=== PATIENT | male | born 1950 | race Caucasian/White ===

== ENCOUNTER 2016-08-05 07:20 | Outpatient (CLI) | payer BC | END 2016-08-05 07:21 | disposition home or self-care (01) | DX: E78.5 Hyperlipidemia, unspecified (principal); I10 Essential (primary) hypertension; I25.10 Atherosclerotic heart disease of native coronary artery without angina pectoris; Z95.1 Presence of aortocoronary bypass graft ==

== ENCOUNTER 2016-08-05 07:20 | Outpatient (CLI) | payer BC | END 2016-08-05 07:21 | disposition home or self-care (01) | DX: E11.9 Type 2 diabetes mellitus without complications (principal); I25.10 Atherosclerotic heart disease of native coronary artery without angina pectoris; I10 Essential (primary) hypertension ==

== ENCOUNTER 2017-02-15 08:00 | Outpatient (CLI) | payer BC ==
[2017-02-15 13:20] LABS: ALBUMIN/GLOBULIN RATIO 1.5 (1.0-2.2); BILIRUBIN,TOTAL 0.9 mg/dL (0.2-1.0); CALCIUM 9.6 mg/dL (8.5-10.3); CREATININE 0.7 mg/dL (0.6-1.2); POTASSIUM 4.4 mmol/L (3.5-5.0); TOTAL PROTEIN 7.4 g/dL (6.7-8.2)
[2017-02-15 13:26] LABS: HEMOGLOBIN A1C 0.92 g/dL
== END 2017-02-15 08:01 | disposition home or self-care (01) ==
LOC: LAB.WCP 08:00
PROVIDERS: ATTEND Family Medicine
DX: I25.10 Atherosclerotic heart disease of native coronary artery without angina pectoris (principal); E11.9 Type 2 diabetes mellitus without complications
CPT/HCPCS: 36415; 80053; 83036

== ENCOUNTER 2017-08-15 07:08 | Outpatient (CLI) | payer BC ==
[2017-08-15 12:30] LABS: BASOPHILS # (AUTO) 0.1 10^3/uL (0.0-0.1); EOSINOPHILS # (AUTO) 0.1 10^3/uL (0.0-0.7); EOSINOPHILS % (AUTO) 2.2 %; HGB - HEMOGLOBIN 15.4 g/dL (14.0-18.0); LYMPHOCYTES # (AUTO) 2.1 10^3/uL (1.5-3.5); LYMPHOCYTES % (AUTO) 36.7 %; MEAN CORPUSCULAR HEMOGLOBIN 31.3 pg (27.0-31.0); MEAN CORPUSCULAR HGB CONC 33.5 g/dL (32.0-36.0); MEAN CORPUSCULAR VOLUME 93.6 fL (80.0-94.0); MONOCYTES # (AUTO) 0.6 10^3/uL (0.0-1.0); MONOCYTES % (AUTO) 10.6 %; NEUTROPHILS # (AUTO) 2.8 10^3/uL (1.5-6.6); NEUTROPHILS % (AUTO) 49.5 %; PLT - PLATELET COUNT 170 10^3/uL (130-450); RED CELL DISTRIBUTION WIDTH 13.2 % (12.0-15.0); WHITE BLOOD COUNT 5.7 x10^3/uL (4.8-10.8)
[2017-08-15 12:47] LABS: HB2 TOTAL 16.9 g/dL; HEMOGLOBIN A1C 0.92 g/dL; HEMOGLOBIN A1C % 7.1 % (4.6-6.2)
[2017-08-15 12:53] LABS: CHOL/HDL RATIO 4.2 (<5.0); CHOLESTEROL 125 mg/dL; HDL CHOLESTEROL 30 mg/dL; LDL CHOLESTEROL,CALCULATED 61 mg/dL; VLDL CHOLESTEROL 34 mg/dL
== END 2017-08-15 07:09 | disposition home or self-care (01) ==
LOC: LAB.WCP 07:08
PROVIDERS: ATTEND Family Medicine
DX: Z12.5 Encounter for screening for malignant neoplasm of prostate (principal); E78.5 Hyperlipidemia, unspecified
CPT/HCPCS: 36415; 80061; 82043; 83036; 83721; 84153; 84443; 85025

== ENCOUNTER 2017-09-04 06:58 | Outpatient (CLI) | payer BC | END 2017-09-04 06:59 | disposition critical access hospital (66) | LOC: EMS 06:58 | PROVIDERS: ATTEND Surgery | DX: R07.9 Chest pain, unspecified (principal) | CPT/HCPCS: A0425; A0427 ==

== ENCOUNTER 2017-09-04 07:21 | Emergency (ER) | payer BC ==
[2017-09-04 07:43] LABS: BASOPHILS # (AUTO) 0.1 10^3/uL (0.0-0.1); BASOPHILS % (AUTO) 1.3 %; EOSINOPHILS # (AUTO) 0.1 10^3/uL (0.0-0.7); EOSINOPHILS % (AUTO) 2.1 %; HGB - HEMOGLOBIN 14.7 g/dL (14.0-18.0); LYMPHOCYTES # (AUTO) 1.7 10^3/uL (1.5-3.5); LYMPHOCYTES % (AUTO) 30.7 %; MEAN CORPUSCULAR HEMOGLOBIN 31.5 pg (27.0-31.0); MEAN CORPUSCULAR HGB CONC 33.9 g/dL (32.0-36.0); MEAN PLATELET VOLUME 8.6 fL (7.4-11.4); MONOCYTES # (AUTO) 0.5 10^3/uL (0.0-1.0); MONOCYTES % (AUTO) 8.7 %; NEUTROPHILS # (AUTO) 3.2 10^3/uL (1.5-6.6); NEUTROPHILS % (AUTO) 57.2 %; PLT - PLATELET COUNT 154 10^3/uL (130-450); RED BLOOD COUNT 4.67 10^6/uL (4.70-6.10); RED CELL DISTRIBUTION WIDTH 13.1 % (12.0-15.0); WHITE BLOOD COUNT 5.7 x10^3/uL (4.8-10.8)
[2017-09-04 07:57] LABS: ALBUMIN/GLOBULIN RATIO 1.3 (1.0-2.2); BILIRUBIN,TOTAL 0.4 mg/dL (0.2-1.0); CALCIUM 8.8 mg/dL (8.5-10.3); CREATININE 0.6 mg/dL (0.6-1.2)
--- NOTE | 2017-09-04 08:07 | ED Physician Documentation ---
PD HPI CHEST PAIN - Stated complaint Stated Complaint: CP - Chief complaint Chief Complaint: Cardiac - History obtained from History obtained from: Patient, Family, EMS - History of Present Illness Timing - onset: Enter time (629), Today Timing - onset during: Rest Timing - duration: Minutes (30) Timing - details: Abrupt onset, Now resolved Quality: Pressure, Tightness Location: Substernal Radiation: Back Improved by: Nothing Worsened by: No: Inspiration, Movement, Palpation, Position Associated symptoms: Diaphoresis. No: Shortness of air, Nausea, Vomiting, Feeling faint / dizzy, General Weakness, Palpitations, Cough Similar symptoms before: Has not had sx before Recently seen: Clinic - Additional information Additional information: 66-year-old diabetic male with a history of coronary artery disease was at his workstation today in his home sitting at his computer when he developed some diaphoresis. He did get up and going to the shower and after he got out of the shower he developed some substernal pressure in his chest with radiation to his back. He did not develop lightheadedness or dizziness associated with this he did not get nauseous. He did not have radiation into his arm or jaw. He took some nitro without change in the pain.His pain lasted about 30 minutes. He notes that over the past week his blood sugars have been running in the 140-180 range she did have one at 200. He is recently been into see his doctor and has had his metformin changed from 500 3 times daily to 1000 twice daily.He has bypass done in 2000 he has had a cath done in 2013 and echo done last year. Review of Systems Constitutional: denies: Fever Eyes: denies: Decreased vision Ears: denies: Ear pain Nose: denies: Congestion Throat: denies: Sore throat Cardiac: reports: Chest pain / pressure. denies: Palpitations, Pedal edema, Calf pain Respiratory: denies: Dyspnea, Cough, Wheezing GI: denies: Abdominal Pain, Nausea, Vomiting : denies: Dysuria, Frequency Skin: denies: Rash Musculoskeletal: reports: Back pain. denies: Neck pain, Extremity pain PD PAST MEDICAL HISTORY - Allergies Allergies/Adverse Reactions: Allergies Allergy/AdvReac Type Severity Reaction Status Date / Time No Known Drug Allergies Allergy Verified 09/04/17 08:32 PD ED PE NORMAL - Vitals Vital signs reviewed: Yes (Hypotensive with wide pulse pressure) - General General: Alert and oriented X 3, No acute distress, Well developed/nourished - HEENT HEENT: Atraumatic, PERRL, EOMI - Neck Neck: Supple, no meningeal sign, No bony TTP - Cardiac Cardiac: RRR, No murmur, Other (Well-healed sternotomy scar) - Respiratory Respiratory: No respiratory distress, Clear bilaterally - Abdomen Abdomen: Soft, Non tender - Back Back: No CVA TTP, No spinal TTP - Derm Derm: Normal color, Warm and dry, No rash - Extremities Extremities: No deformity, No edema - Neuro Neuro: Alert and oriented X 3, No motor deficit, No sensory deficit, Normal speech Eye Opening: Spontaneous Motor: Obeys Commands Verbal: Oriented GCS Score: 15 - Psych Psych: Normal mood, Normal affect Results - Vitals Vitals: Vital Signs - 24 hr 09/04/17 09/04/17 09/04/17 07:30 08:21 10:38 Temperature 36.8 C 37.0 C Heart Rate 73 64 53 L Respiratory 16 14 18 Rate Blood Pressure 105/51 L 154/77 H 161/82 H O2 Saturation 100 96 93 Oxygen O2 Source Room air - EKG (time done) 0725 Rate: Rate (enter#) (67) Rhythm: NSR, LAE Intervals: Prolonged MA Ischemia: Q waves, Non specific changes Compare to prior EKG: Old EKG unavailable Computer interpretation: Agree with computer - Labs Labs: Laboratory Tests 09/04/17 09/04/17 09/04/17 07:38 07:38 07:38 WBC 5.7 RBC 4.67 L Hgb 14.7 Hct 43.4 MCV 93.0 MCH 31.5 H MCHC 33.9 RDW 13.1 Plt Count 154 MPV 8.6 Neut # 3.2 Lymph # 1.7 [place] # 0.5 Eos # 0.1 Baso # 0.1 Absolute Nucleated RBC 0.00 Nucleated RBC % 0.0 Sodium 136 Potassium 4.0 Chloride 104 Carbon Dioxide 24 Anion Gap 8.0 BUN 16 Creatinine 0.6 Estimated GFR (MDRD) 136 Glucose 199 H Calcium 8.8 Total Bilirubin 0.4 AST 29 ALT 54 Alkaline Phosphatase 81 Troponin I < 0.04 Total Protein 7.0 Albumin 4.0 Globulin 3.0 Albumin/Globulin Ratio 1.3 Lipase 33 09/04/17 11:03 WBC RBC Hgb Hct MCV MCH MCHC RDW Plt Count MPV Neut # Lymph # [place] # Eos # Baso # Absolute Nucleated RBC Nucleated RBC % Sodium Potassium Chloride Carbon Dioxide Anion Gap BUN Creatinine Estimated GFR (MDRD) Glucose Calcium Total Bilirubin AST ALT Alkaline Phosphatase Troponin I < 0.04 Total Protein Albumin Globulin Albumin/Globulin Ratio Lipase - Rads (name of study) 2 veiw chest Radiology: Prelim report reviewed (Impression: No radiographically apparent acute abnormality in the chest. No significant change from prior.), EMP read indepedently, See rad report Procedures - IVC sono (time) 0755 Bedside IVC sono: IVC measures (cm) (0.92), IVC collapsed c insp (cm) (complete) , Dehydration (est 1.5 -2 liter deficit) PD MEDICAL DECISION MAKING - ED course Complexity details: reviewed old records, reviewed results, re-evaluated patient , considered differential, d/w patient, d/w family ED course: 66-year-old diabetic male with coronary artery disease has had an episode of chest pain now resolved and on initial evaluation he is dehydrated he does have a low blood pressure at 105/51 with a wide pulse pressure consistent with the dehydration. His episode occurred when he got out of the shower also consistent with redistribution of fluid into the skin potentially resulting in his episode of angina.Saline is begun in the emergency department. The patient has no symptoms in the ED and passes a road test and a 2nd trop is also negative. Departure - Departure Disposition: 01 Home, Self Care Clinical Impression: Atypical chest pain, Dehydration Condition: Stable Instructions: ED Chest Pain Atypical Unkn Cause, ED Dehydration Follow-Up: Eder Mei MD [Primary Care Provider] -
--- NOTE | 2017-09-04 08:09 | XRAY Report ---
EXAM: CHEST RADIOGRAPHY EXAM DATE: 09/04/2017 07:52 AM. CLINICAL HISTORY: Chest pain . COMPARISON: 11/23/2009. TECHNIQUE: 2 views. FINDINGS: Lungs/Pleura: No focal consolidation evident. No pleural effusion. No pneumothorax. Upper normal volu mes. Mediastinum: Heart and mediastinal contours are unremarkable. Aortic atherosclerosis. Other: Status post median sternotomy. IMPRESSION: No radiographically apparent acute abnormality in the chest. No significant change from p rior. [facility] Referring Provider Line: [phone] SITE ID: [id number]
[2017-09-04] MEDS ORDERED: SODIUM CHLORIDE 0.9% 1,000 ML IV ONE (08:16)
[2017-09-04 10:40] VITALS: BP 161/82
== END 2017-09-04 12:20 | disposition home or self-care (01) ==
LOC: EDUNIT# → ED 07:21
DX: R07.89 Other chest pain (principal); E86.0 Dehydration; E11.9 Type 2 diabetes mellitus without complications; I25.10 Atherosclerotic heart disease of native coronary artery without angina pectoris
CPT/HCPCS: 36415; 71046; 80053; 83690; 84484; 85025; 93005; 96360; 99283; 99284

== ENCOUNTER 2018-03-16 12:17 | Outpatient (CLI) | payer BC ==
[2018-03-16 12:59] LABS: ALBUMIN/GLOBULIN RATIO 1.4 (1.0-2.2); BILIRUBIN,TOTAL 0.7 mg/dL (0.2-1.0); CALCIUM 8.8 mg/dL (8.5-10.3); CREATININE 0.8 mg/dL (0.6-1.2); TOTAL PROTEIN 6.9 g/dL (6.7-8.2)
[2018-03-16 13:09] LABS: HB2 TOTAL 15.6 g/dL; HEMOGLOBIN A1C 0.81 g/dL; HEMOGLOBIN A1C % 6.9 % (4.6-6.2)
== END 2018-03-16 12:18 | disposition home or self-care (01) ==
LOC: LAB.WCP 12:17
PROVIDERS: ATTEND Family Medicine
DX: E11.9 Type 2 diabetes mellitus without complications (principal)
CPT/HCPCS: 36415; 80053; 83036

== ENCOUNTER 2018-03-21 19:46 | Emergency (ER) | payer BC ==
--- NOTE | 2018-03-21 20:49 | ED Physician Documentation ---
PD HPI CHEST PAIN - Stated complaint Stated Complaint: CP - Chief complaint Chief Complaint: Cardiac - History obtained from History obtained from: Patient - History of Present Illness Timing - onset: Enter time (19:00), Today Timing - onset during: Rest (while sitting at table, shortly after finishing dinner) Timing - details: Abrupt onset Pain level max: 3 Pain level now: 0 Quality: Tightness Location: Substernal (across anterior chest) Radiation: No: Jaw, Neck, Back, Abdominal, Left upper extremity, Right upper extremity Improved by: Nothing Worsened by: Other (no exacerbating factors) Associated symptoms: No: Shortness of air, Diaphoresis, Nausea, Vomiting, Feeling faint / dizzy, General Weakness, Palpitations, Cough Recently seen: Not recently seen - Additional information Additional information: c/o tightness across chest tonight 7 PM shortly after finishing dinner. Also felt anxious and thus took lorazepam. Symptoms have resolved by the time of this evaluation.He also took 325mg ASA tonight. Review of Systems Constitutional: reports: Sweats Cardiac: reports: Chest pain / pressure. denies: Palpitations, Pedal edema, Calf pain Respiratory: reports: Reviewed and negative GI: reports: Reviewed and negative PD PAST MEDICAL HISTORY - Past Medical History Past Medical History: Yes Cardiovascular: Hypertension, High cholesterol, Coronary artery disease, [place] Respiratory: None Neuro: None Endocrine/Autoimmune: Type 2 diabetes GI: None, Hepatitis HEENT: None Psych: Anxiety Derm: None - Past Surgical History Past Surgical History: Yes Cardiovascular: CABG - Present Medications Home Medications: Ambulatory Orders Medication Instructions Recorded Confirmed Atenolol 03/21/18 Atorvastatin [Lipitor] 03/21/18 Azithromycin [Zithromax] 250 mg PO DAILY #4 tablet 03/21/18 Glipizide [Glipizide ER] 03/21/18 Metformin HCl [Metformin HCl ER] 03/21/18 Ramipril 03/21/18 metFORMIN [Glucophage] 03/21/18 - Allergies Allergies/Adverse Reactions: Allergies Allergy/AdvReac Type Severity Reaction Status Date / Time No Known Drug Allergies Allergy Verified 03/21/18 20:18 - Social History Does the pt smoke?: No Smoking Status: Never smoker Does the pt drink ETOH?: Yes ETOH Use: Beer Does the pt have substance abuse?: No - Immunizations Immunizations are current?: Yes - POLST Patient has POLST: Yes PD ED PE NORMAL - Vitals Vital signs reviewed: Yes - General General: Alert and oriented X 3, No acute distress, Well developed/nourished - Neck Neck: Supple, no meningeal sign - Cardiac Cardiac: RRR, No murmur, No gallop, No rub - Respiratory Respiratory: No respiratory distress, Clear bilaterally - Abdomen Abdomen: Soft, Non tender - Extremities Extremities: No edema - Neuro Neuro: Alert and oriented X 3 Results - Vitals Vitals: Oxygen O2 Source Room air - EKG (time done) No standard instances Rate: Rate (enter#) (92) Rhythm: NSR, LAE [place]: Normal Intervals: Normal MD QRS: Normal Ischemia: Q waves (V1-V4), Non specific changes (V5, V6) - Labs Labs: Laboratory Tests 03/21/18 03/21/18 03/21/18 20:10 20:10 20:10 WBC 6.0 RBC 4.86 Hgb 15.6 Hct 45.2 MCV 93.0 MCH 32.0 H MCHC 34.5 RDW 13.4 Plt Count 177 MPV 8.8 Neut # (Auto) 3.4 Lymph # (Auto) 2.1 [place] # (Auto) 0.4 Eos # (Auto) 0.1 Baso # (Auto) 0.1 Absolute Nucleated RBC 0.01 Nucleated RBC % 0.1 Sodium 140 Potassium 4.1 Chloride 104 Carbon Dioxide 27 Anion Gap 9.0 BUN 26 H Creatinine 0.7 Estimated GFR (MDRD) 113 Glucose 220 H Calcium 9.2 Total Bilirubin 0.5 AST 39 ALT 60 Alkaline Phosphatase 107 Troponin I < 0.04 Total Protein 7.1 Albumin 4.3 Globulin 2.8 Albumin/Globulin Ratio 1.5 Lipase 45 - Rads (name of study) chest xray Radiology: Prelim report reviewed, See rad report PD MEDICAL DECISION MAKING - ED course Complexity details: reviewed results, re-evaluated patient, considered differential, d/w patient - Sepsis Event Vital Signs: Oxygen O2 Source Room air Departure - Departure Disposition: 01 Home, Self Care Clinical Impression: Chest pain Condition: Good Instructions: ED Chest Pain Atypical Unkn Cause Follow-Up: Eder Mei MD [Primary Care Provider] - Prescriptions: Azithromycin [Zithromax] 250 mg PO DAILY #4 tablet Discharge Date/Time: 03/21/18 22:54
[2018-03-21 20:53] LABS: BASOPHILS # (AUTO) 0.1 10^3/uL (0.0-0.1); BASOPHILS % (AUTO) 1.1 %; EOSINOPHILS # (AUTO) 0.1 10^3/uL (0.0-0.7); EOSINOPHILS % (AUTO) 1.7 %; HGB - HEMOGLOBIN 15.6 g/dL (14.0-18.0); LYMPHOCYTES # (AUTO) 2.1 10^3/uL (1.5-3.5); LYMPHOCYTES % (AUTO) 34.6 %; MEAN CORPUSCULAR HGB CONC 34.5 g/dL (32.0-36.0); MEAN PLATELET VOLUME 8.8 fL (7.4-11.4); MONOCYTES # (AUTO) 0.4 10^3/uL (0.0-1.0); MONOCYTES % (AUTO) 6.3 %; NEUTROPHILS # (AUTO) 3.4 10^3/uL (1.5-6.6); NEUTROPHILS % (AUTO) 56.3 %; PLT - PLATELET COUNT 177 10^3/uL (130-450); RED BLOOD COUNT 4.86 10^6/uL (4.70-6.10); RED CELL DISTRIBUTION WIDTH 13.4 % (12.0-15.0)
[2018-03-21 21:05] LABS: ALBUMIN 4.3 g/dL (3.2-5.5); ALBUMIN/GLOBULIN RATIO 1.5 (1.0-2.2); BILIRUBIN,TOTAL 0.5 mg/dL (0.2-1.0); CALCIUM 9.2 mg/dL (8.5-10.3); CREATININE 0.7 mg/dL (0.6-1.2); TOTAL PROTEIN 7.1 g/dL (6.7-8.2)
--- NOTE | 2018-03-21 21:36 | XRAY Report ---
Reason: CP Procedure Date: 03/21/2018 Accession Number: [id number] / [id number] Procedure: XR - Chest 2 View X-Ray CPT Code: 26630 FULL RESULT: EXAM: CHEST RADIOGRAPHY EXAM DATE: 03/21/2018 09:28 PM. CLINICAL HISTORY: Chest pain. COMPARISON: Chest 2 view 09/04/2017 7:35 AM. TECHNIQUE: 2 views. FINDINGS: Lungs/Pleura: New small interstitial infiltrate posterior basal segment left lower lobe. No effusion, vascular congestion or pneumothorax. Mediastinum: Remote sternotomy. Heart remains normal caliber. No tracheal shift. Other: None. IMPRESSION: Small left posterior lung base infiltrate. [facility]
[2018-03-21 22:33] VITALS: BP 135/73
[2018-03-21] MEDS ORDERED: AZITHROMYCIN 250 MG TABLET PO STA (22:37)
== END 2018-03-21 22:54 | disposition home or self-care (01) ==
LOC: ED 19:46
DX: R07.9 Chest pain, unspecified (principal); I10 Essential (primary) hypertension; E11.9 Type 2 diabetes mellitus without complications; Z79.84 Long term (current) use of oral hypoglycemic drugs; R94.31 Abnormal electrocardiogram [ECG] [EKG]; Z95.1 Presence of aortocoronary bypass graft
CPT/HCPCS: 36415; 71046; 80053; 83690; 84484; 85025; 93005; 99283; 99284; A9270

== ENCOUNTER 2018-09-17 08:00 | Outpatient (CLI) | payer BC ==
[2018-09-17 13:59] LABS: BASOPHILS % (AUTO) 0.9 %; EOSINOPHILS # (AUTO) 0.1 10^3/uL (0.0-0.7); EOSINOPHILS % (AUTO) 2.3 %; HGB - HEMOGLOBIN 14.6 g/dL (14.0-18.0); LYMPHOCYTES # (AUTO) 1.8 10^3/uL (1.5-3.5); LYMPHOCYTES % (AUTO) 34.9 %; MEAN CORPUSCULAR HGB CONC 32.8 g/dL (32.0-36.0); MEAN CORPUSCULAR VOLUME 94.5 fL (80.0-94.0); MEAN PLATELET VOLUME 9.1 fL (7.4-11.4); MONOCYTES # (AUTO) 0.5 10^3/uL (0.0-1.0); MONOCYTES % (AUTO) 9.7 %; NEUTROPHILS # (AUTO) 2.7 10^3/uL (1.5-6.6); NEUTROPHILS % (AUTO) 52.2 %; PLT - PLATELET COUNT 183 10^3/uL (130-450); RED BLOOD COUNT 4.73 10^6/uL (4.70-6.10); RED CELL DISTRIBUTION WIDTH 13.1 % (12.0-15.0); WHITE BLOOD COUNT 5.2 x10^3/uL (4.8-10.8)
[2018-09-17 14:25] LABS: ALBUMIN/GLOBULIN RATIO 1.5 (1.0-2.2); ALKALINE PHOSPHATASE 71 IU/L (42-121); ALT ALANINE AMINOTRANSFERASE 56 IU/L (10-60); AST ASPARTATE AMINOTRANSFERASE 35 IU/L (10-42); BILIRUBIN,TOTAL 0.9 mg/dL (0.2-1.0); BUN - BLOOD UREA NITROGEN 18 mg/dL (6-20); CALCIUM 8.9 mg/dL (8.5-10.3); CARBON DIOXIDE - CO2 26 mmol/L (21-32); CHLORIDE 102 mmol/L (101-111); CHOL/HDL RATIO 3.4 (<5.0); CHOLESTEROL 105 mg/dL; CREATININE 0.7 mg/dL (0.6-1.2); GFR - MDRD 113 (>89); GLUCOSE 164 mg/dL (70-100); HDL CHOLESTEROL 31 mg/dL; LDL CHOLESTEROL,CALCULATED 44 mg/dL; LDL/HDL RATIO 1.4 (<3.6); SODIUM 136 mmol/L (135-145); TOTAL PROTEIN 6.7 g/dL (6.7-8.2); VLDL CHOLESTEROL 30 mg/dL
[2018-09-17 14:38] LABS: CREATININE,URINE 17.6 mg/dL; MICROALBUM/CREATININE RATIO,UR 187.5 ug/mg (<30.0); MICROALBUMIN,URINE 3.3 mg/dL (0-300.0)
[2018-09-17 14:40] LABS: HB2 TOTAL 16.4 g/dL; HEMOGLOBIN A1C 0.87 g/dL
== END 2018-09-17 23:59 | disposition home or self-care (01) ==
LOC: LAB.WCP 08:00
PROVIDERS: ATTEND Family Medicine
DX: I25.10 Atherosclerotic heart disease of native coronary artery without angina pectoris (principal); I10 Essential (primary) hypertension; E78.5 Hyperlipidemia, unspecified; E11.9 Type 2 diabetes mellitus without complications; E66.9 Obesity, unspecified
CPT/HCPCS: 36415; 80053; 80061; 82043; 82570; 83036; 83721; 84443; 85025

== ENCOUNTER 2018-10-08 13:22 | Outpatient (CLI) | payer BC ==
--- NOTE | 2018-10-08 15:58 | XRAY Report ---
Reason: DYSPEPSIA Procedure Date: 10/08/2018 Accession Number: [id number] / [id number] Procedure: FL - Esophogram CPT Code: FULL RESULT: EXAM: BARIUM ESOPHAGRAM. EXAM DATE: 10/08/2018 02:35 PM. CLINICAL HISTORY: Dyspepsia. COMPARISONS: None. TECHNIQUE: Routine double contrast esophagram. Fluoroscopy Time: 2 minutes 24 seconds. Number of Images: 12. FINDINGS: Swallowing Mechanism: Normal. No tracheal aspiration or penetration. Esophageal Motility: Normal peristaltic stripping wave. Mucosa: Normal. No ulcerations or masses. Gastroesophageal Junction: Normal. No hernia, stricture, or significant reflux. Other: None. IMPRESSION: No hiatal hernia was detected. No spontaneous reflux was elicited. [facility]
[2018-10-08] MEDS ORDERED: BARIUM SULFATE 135 ML BOTTLE PO ONE (16:28)
== END 2018-10-08 13:23 | disposition home or self-care (01) ==
LOC: DI 13:22
PROVIDERS: ATTEND Family Medicine
DX: K30 Functional dyspepsia (principal)
CPT/HCPCS: 74220; A9270

== ENCOUNTER 2019-05-02 08:00 | Outpatient (CLI) | payer BC ==
[2019-05-02 12:40] LABS: CALCIUM 9.2 mg/dL (8.5-10.3); CREATININE 0.7 mg/dL (0.6-1.2)
[2019-05-02 12:55] LABS: HEMOGLOBIN A1C 0.82 g/dL; HEMOGLOBIN A1C % 6.8 % (4.6-6.2)
== END 2019-05-02 23:59 | disposition home or self-care (01) ==
LOC: LAB.WCP 08:00
PROVIDERS: ATTEND Family Medicine
DX: E11.9 Type 2 diabetes mellitus without complications (principal); Z12.5 Encounter for screening for malignant neoplasm of prostate
CPT/HCPCS: 36415; 80048; 83036; 84153

== ENCOUNTER 2020-03-19 07:56 | Outpatient (CLI) | payer BC, OTHER ==
[2020-03-19 11:31] LABS: BASOPHILS # (AUTO) 0.1 10^3/uL (0.0-0.1); BASOPHILS % (AUTO) 0.9 %; EOSINOPHILS # (AUTO) 0.1 10^3/uL (0.0-0.7); EOSINOPHILS % (AUTO) 2.2 %; HGB - HEMOGLOBIN 15.2 g/dL (14.0-18.0); LYMPHOCYTES # (AUTO) 1.9 10^3/uL (1.5-3.5); LYMPHOCYTES % (AUTO) 35.1 %; MEAN CORPUSCULAR HEMOGLOBIN 32.4 pg (27.0-31.0); MEAN CORPUSCULAR HGB CONC 33.4 g/dL (32.0-36.0); MEAN PLATELET VOLUME 10.6 fL (7.4-11.4); MONOCYTES # (AUTO) 0.5 10^3/uL (0.0-1.0); NEUTROPHILS # (AUTO) 2.8 10^3/uL (1.5-6.6); NEUTROPHILS % (AUTO) 51.4 %; PLT - PLATELET COUNT 167 10^3/uL (130-450); RED BLOOD COUNT 4.69 10^6/uL (4.70-6.10); RED CELL DISTRIBUTION WIDTH 12.7 % (12.0-15.0); WHITE BLOOD COUNT 5.4 x10^3/uL (4.8-10.8)
[2020-03-19 12:06] LABS: ALBUMIN 4.3 g/dL (3.2-5.5); ALBUMIN/GLOBULIN RATIO 1.7 (1.0-2.2); ALKALINE PHOSPHATASE 58 IU/L (42-121); ALT ALANINE AMINOTRANSFERASE 51 IU/L (10-60); AST ASPARTATE AMINOTRANSFERASE 34 IU/L (10-42); BILIRUBIN,TOTAL 0.9 mg/dL (0.2-1.0); BUN - BLOOD UREA NITROGEN 19 mg/dL (6-20); CALCIUM 9.4 mg/dL (8.5-10.3); CARBON DIOXIDE - CO2 26 mmol/L (21-32); CHLORIDE 103 mmol/L (101-111); CHOL/HDL RATIO 3.3 (<5.0); CHOLESTEROL 107 mg/dL; CREATININE 0.8 mg/dL (0.6-1.2); GLUCOSE 152 mg/dL (70-100); HDL CHOLESTEROL 32 mg/dL; LDL CHOLESTEROL,CALCULATED 46 mg/dL; LDL/HDL RATIO 1.4 (<3.6); SODIUM 137 mmol/L (135-145); TOTAL PROTEIN 6.9 g/dL (6.7-8.2); VLDL CHOLESTEROL 29 mg/dL
== END 2020-03-19 23:59 | disposition home or self-care (01) ==
LOC: LAB.WCP 07:56
PROVIDERS: ATTEND Family Medicine
DX: Z00.00 Encounter for general adult medical examination without abnormal findings (principal)
CPT/HCPCS: 36415; 80053; 80061; 83721; 84443; 85025

== ENCOUNTER 2020-04-09 07:22 | Outpatient (CLI) | payer BC ==
[2020-04-09] MEDS ORDERED: IOVERSOL 320 100 ML VIAL IVP ONE ×2 (07:33→17:55)
[2020-04-09] MEDS ORDERED: IOVERSOL 320 50 ML VIAL ONE (07:33)
--- NOTE | 2020-04-09 09:49 | CT Report ---
PROCEDURE: Abdomen/Pelvis W INDICATIONS: RLQ ABDOMINAL PAIN CONTRAST: IV CONTRAST: Optiray 320 ml: 100 PO CONTRAST: Optiray 320 ml50 TECHNIQUE: After the administration of intravenous contrast, 5 mm thick sections acquired from the diaphragms to the symphysis. 5 mm thick coronal and sagittal reformats were acquired. For radiation dose reducti on, the following was used: automated exposure control, adjustment of mA and/or kV according to arnaldo ent size. COMPARISON: None. FINDINGS: Image quality: Excellent. ABDOMEN: Lung bases: There is a 5 mm subpleural right lower lobe pulmonary nodule (series 4 image 8). There is also a 4 mm left lower lobe pulmonary nodule on series 4 image 8. Coronary atherosclerosis. No pleur al effusion or pericardial effusion within the suldo-vc-fryi. Liver: Enpj-be-ihwylrvi hepatic steatosis. No focal hepatic mass. Hepatic and portal veins appear pat ent. Gallbladder and bile ducts: No intrahepatic biliary ductal dilatation. Normal caliber common duct. Ga llbladder is unremarkable. Pancreas: Pancreas is within normal limits. Spleen: No splenomegaly. Retroperitoneum: No adrenal gland mass. There is an exophytic simple cyst in the left lower pole kidn ey measuring 4.6 cm. Otherwise normal appearance of both kidneys. IVC is within normal limits. Athero sclerotic abdominal aorta without aneurysm. No threshold enlarged retroperitoneal lymph nodes by CT s ize criteria. Peritoneum and bowel: The appendix is not visualized. There are no secondary signs of appendicitis. T he bowel is otherwise normal in appearance. PELVIS: Genitourinary: Bladder wall thickness is normal. Miscellaneous: No inguinal hernias or adenopathy. Bones: No suspicious bony lesions. No vertebral body compression fractures. IMPRESSION: No findings to explain right lower quadrant abdominal pain. Mild hepatic steatosis. Bilateral lower lobe pulmonary nodules. Completion CT of the chest recommended. Reviewed by: Johny Menjivar MD on 04/09/2020 9:47 AM PDT Approved by: Johny Menjivar MD on 04/09/2020 9:47 AM PDT Station ID: [id number]
== END 2020-04-09 07:23 | disposition home or self-care (01) ==
LOC: DI 07:22
PROVIDERS: ATTEND Family Medicine
DX: R10.31 Right lower quadrant pain (principal); K76.0 Fatty (change of) liver, not elsewhere classified; R91.8 Other nonspecific abnormal finding of lung field
CPT/HCPCS: 74177; Q9967

== ENCOUNTER 2020-05-13 09:10 | Outpatient (CLI) | payer BC ==
--- NOTE | 2020-05-13 17:57 | CT Report ---
PROCEDURE: CHEST WO INDICATIONS: PULMONARY NODULE TECHNIQUE: Noncontrast 5 mm thick sections acquired from the pulmonary apices to the posterior costophrenic angl es. 7 mm thick coronal and sagittal MIP reformats were then acquired. For radiation dose reduction, the following was used: automated exposure control, adjustment of mA and/or kV according to patient size. COMPARISON: FINDINGS: Image quality: Excellent. Lungs and pleura: No acute air space opacities. At the posterolateral right lower lobe there is a p eripheral 5 mm maximal dimension pulmonary nodule which has not enlarged. This was initially identifi ed 04/09/2020 on images from the abdominal CT. A smaller 4 mm nodule is seen at the anterior left lowe r lobe on series 4 image 184, and also has not changed from the prior CT. More superiorly no pulmonar y nodules are seen. No pleural effusions or pneumothorax. Central and peripheral airways are patent and normal in caliber. Mediastinum: Heart size is normal. No pericardial effusion. No mediastinal adenopathy by size crit eria. Thoracic aorta and central pulmonary arteries are normal in size. Esophagus is normal in [place]. No hiatal hernia. Prior sternotomy, presumed prior CABG. Bones and chest wall: No suspicious bony lesions. No vertebral body compression fractures. No axil tone or supraclavicular adenopathy by size criteria. The thyroid is normal in size. Abdomen: Visualized upper abdominal solid organs and bowel loops appear normal in the absence of con trast. IMPRESSION: There is a low likelihood of neoplastic etiology of the 2 pulmonary nodules identified originally 04/09/[address] scanning. A follow-up CT scan in 6 months is recommended utilizing noncontrast technique to confirm stability of appearance over time. Reviewed by: Rian Small MD on 05/13/2020 5:56 PM PST Approved by: Rian Small MD on 05/13/2020 5:56 PM PST Station ID: [id number]
== END 2020-05-13 09:11 | disposition home or self-care (01) ==
LOC: DI 09:10
PROVIDERS: ATTEND Family Medicine
DX: R91.8 Other nonspecific abnormal finding of lung field (principal)
CPT/HCPCS: 71250

== ENCOUNTER 2020-09-12 08:04 | Outpatient (CLI) | payer BC ==
[2020-09-12 09:16] LABS: BASOPHILS # (AUTO) 0.1 10^3/uL (0.0-0.1); EOSINOPHILS # (AUTO) 0.1 10^3/uL (0.0-0.7); EOSINOPHILS % (AUTO) 2.6 %; HCT - HEMATOCRIT 51.9 % (42.0-52.0); HGB - HEMOGLOBIN 16.3 g/dL (14.0-18.0); LYMPHOCYTES # (AUTO) 1.5 10^3/uL (1.5-3.5); LYMPHOCYTES % (AUTO) 29.1 %; MEAN CORPUSCULAR HEMOGLOBIN 31.3 pg (27.0-31.0); MEAN CORPUSCULAR HGB CONC 31.4 g/dL (32.0-36.0); MEAN CORPUSCULAR VOLUME 99.8 fL (80.0-94.0); MEAN PLATELET VOLUME 9.7 fL (7.4-11.4); MONOCYTES # (AUTO) 0.5 10^3/uL (0.0-1.0); MONOCYTES % (AUTO) 9.6 %; NEUTROPHILS # (AUTO) 2.9 10^3/uL (1.5-6.6); NEUTROPHILS % (AUTO) 57.3 %; PLT - PLATELET COUNT 167 10^3/uL (130-450); RED CELL DISTRIBUTION WIDTH 12.8 % (12.0-15.0)
[2020-09-12 09:22] LABS: CREATININE,URINE 38.9 mg/dL; MICROALBUM/CREATININE RATIO,UR 38.6 ug/mg (<30.0); MICROALBUMIN,URINE 1.5 mg/dL (0-300.0)
[2020-09-12 09:37] LABS: ALBUMIN 4.3 g/dL (3.2-5.5); ALBUMIN/GLOBULIN RATIO 1.4 (1.0-2.2); ALKALINE PHOSPHATASE 72 IU/L (42-121); ALT ALANINE AMINOTRANSFERASE 38 IU/L (10-60); AST ASPARTATE AMINOTRANSFERASE 28 IU/L (10-42); BILIRUBIN,TOTAL 0.9 mg/dL (0.2-1.0); BUN - BLOOD UREA NITROGEN 22 mg/dL (6-20); CALCIUM 9.5 mg/dL (8.5-10.3); CARBON DIOXIDE - CO2 29 mmol/L (21-32); CHLORIDE 103 mmol/L (101-111); CHOL/HDL RATIO 3.4 (<5.0); CHOLESTEROL 120 mg/dL; CREATININE 0.7 mg/dL (0.6-1.2); GFR - MDRD 112 (>89); GLUCOSE 137 mg/dL (70-100); HDL CHOLESTEROL 35 mg/dL; LDL CHOLESTEROL,CALCULATED 62 mg/dL; LDL/HDL RATIO 1.8 (<3.6); POTASSIUM 4.5 mmol/L (3.5-5.0); SODIUM 141 mmol/L (135-145); TOTAL PROTEIN 7.3 g/dL (6.7-8.2); TRIGLYCERIDES 114 mg/dL; VLDL CHOLESTEROL 23 mg/dL
[2020-09-12 09:48] LABS: THYROID STIMULATING HORMONE 0.85 uIU/mL (0.34-5.60)
[2020-09-12 14:26] LABS: ESTIMATED AVERAGE GLUCOSE 148 mg/dL (70-100); HEMOGLOBIN A1c% 6.8 % (4.27-6.07)
== END 2020-09-12 08:05 | disposition home or self-care (01) ==
LOC: LAB 08:04
PROVIDERS: ATTEND Family Medicine
DX: I25.10 Atherosclerotic heart disease of native coronary artery without angina pectoris (principal); E11.9 Type 2 diabetes mellitus without complications; E78.5 Hyperlipidemia, unspecified; I10 Essential (primary) hypertension
CPT/HCPCS: 36415; 80053; 80061; 82043; 82570; 83036; 83721; 84153; 84443; 85025

== ENCOUNTER 2020-12-28 10:12 | Outpatient (CLI) | payer OTHER, BC ==
--- NOTE | 2020-12-28 12:20 | XRAY Report ---
PROCEDURE: Humerus LT INDICATIONS: L SHOULDER AND ARM PX TECHNIQUE: 2 views of the humerus were acquired. COMPARISON: None FINDINGS: Bones: No fractures or dislocations. No suspicious bony lesions. Prominent olecranon bone spur. Soft tissues: No suspicious soft tissue calcifications. IMPRESSION: No fracture. No acute osseous lesion. If there persistent symptoms or continued clinical concern for pathology, then repeat plain film radiographs (7-10 days) or advanced imaging (CT, MR, bone scan) tasha uld be considered for further evaluation. Reviewed by: Crys Rodriguez MD, PhD on 12/28/2020 12:19 PM PDT Approved by: Crys Rodriguez MD, PhD on 12/28/2020 12:19 PM PDT Station ID: [id number]
--- NOTE | 2020-12-28 12:21 | XRAY Report ---
Mild bilateral hip osteoarthritis. PROCEDURE: Hip w/Pelvis 1V LT INDICATIONS: L HIP PX TECHNIQUE: AP pelvis with lateral view(s) of the left hip(s). COMPARISON: None. FINDINGS: Bones: No fractures or dislocations. Pelvic ring appears intact. No suspicious bony lesions. Soft tissues: The visualized bowel gas pattern is normal. No suspicious soft tissue calcifications. IMPRESSION: Mild bilateral hip osteoarthritis. Reviewed by: Crys Rodriguez MD, PhD on 12/28/2020 12:20 PM PDT Approved by: Crys Rodriguez MD, PhD on 12/28/2020 12:20 PM PDT Station ID: [id number]
== END 2020-12-28 10:13 | disposition home or self-care (01) ==
LOC: DI.N 10:12
PROVIDERS: ATTEND Nurse Practitioner
DX: M25.512 Pain in left shoulder (principal); M25.552 Pain in left hip; W19.XXXA Unspecified fall, initial encounter; M16.0 Bilateral primary osteoarthritis of hip

== ENCOUNTER 2021-01-08 19:30 | Emergency (ER) | payer OTHER, BC ==
[2021-01-08] MEDS ORDERED: oxyCODONE 5 MG TABLET PO STA (20:27)
--- NOTE | 2021-01-08 20:28 | ED Physician Documentation ---
PD HPI LOWER EXT INJURY - Stated complaint Stated Complaint: GLF/LT HIP PX - Chief complaint Chief Complaint: Trauma Ext - History obtained from History obtained from: Patient - Additional information Additional information: Fell on December 22, injuring his hip. X-rays were negative. Subsequently had complete improvement. Today he fell at work kind of down onto his back and hip and complete complains of severe left hip pain especially with ambulation. No other injuries. Review of Systems Constitutional: reports: Reviewed and negative Eyes: reports: Reviewed and negative Ears: reports: Reviewed and negative Nose: reports: Rhinorrhea / runny nose Throat: reports: Reviewed and negative PD PAST MEDICAL HISTORY - Past Medical History Past Medical History: Yes Cardiovascular: Hypertension, High cholesterol, Coronary artery disease, [place] Respiratory: None Neuro: None Endocrine/Autoimmune: Type 2 diabetes GI: None, Hepatitis HEENT: None Psych: Anxiety Derm: None - Past Surgical History Past Surgical History: Yes Cardiovascular: CABG - Present Medications Home Medications: Ambulatory Orders Medication Instructions Recorded Confirmed Atorvastatin [Lipitor] 40 mg PO DAILY 03/21/18 01/08/21 Glipizide [Glipizide ER] 5 mg PO DAILY 03/21/18 01/08/21 Metformin HCl [Metformin HCl ER] 500 mg PO BID 03/21/18 01/08/21 Ramipril 10 mg PO DAILY 03/21/18 01/08/21 atenoloL [Atenolol] 50 mg PO DAILY 03/21/18 01/08/21 Aspirin [Centre Aspirin] 81 mg PO DAILY 01/08/21 01/08/21 Cyanocobalamin (Vitamin B-12) 1,000 mg PO TID 01/08/21 01/08/21 [Vitamin B-12] LORazepam [Ativan] 1 mg PO Q4HR PRN 01/08/21 01/08/21 Magnesium Oxide [Magnesium] 400 mg PO BID 01/08/21 01/08/21 Multivitamin 1 tab PO DAILY 01/08/21 01/08/21 Nitroglycerin [Nitrostat] 0.4 mg PO PRN 01/08/21 Oxycodone HCl/Acetaminophen 1 - 2 each PO Q6H PRN #10 tablet 01/08/21 [Percocet 5-325 mg Tablet] Ubidecarenone [Coenzyme Q-10] 200 mg PO DAILY 01/08/21 01/08/21 - Allergies Allergies/Adverse Reactions: Allergies Allergy/AdvReac Type Severity Reaction Status Date / Time No Known Drug Allergies Allergy Verified 03/21/18 20:18 - Social History Does the pt smoke?: No Smoking Status: Never smoker Does the pt drink ETOH?: Yes Does the pt have substance abuse?: No - Immunizations Immunizations are current?: Yes - POLST Patient has POLST: Yes PD ED PE NORMAL - Vitals Vital signs reviewed: Yes - General General: Alert and oriented X 3, No acute distress - HEENT HEENT: PERRL, EOMI - Neck Neck: Supple, no meningeal sign, No bony TTP - Cardiac Cardiac: RRR, No murmur - Respiratory Respiratory: No respiratory distress, Clear bilaterally - Abdomen Abdomen: Non tender - Back Back: No spinal TTP - Extremities Extremities: Other (He does have pain with internal and external rotation of the left hip but it is in the buttock more than the groin or laterally. Mildly tender over the lateral hip but much more tender over the buttock. This is on the left.) - Neuro Neuro: Alert and oriented X 3, Normal speech Results - Vitals Vitals: Vital Signs - 24 hr 01/08/21 01/08/21 19:41 20:31 Temperature 36.5 C Heart Rate 92 84 Respiratory 18 18 Rate Blood Pressure 118/73 O2 Saturation 95 95 Oxygen O2 Source Room air PD MEDICAL DECISION MAKING - ED course ED course: 70-year-old gentleman with fall, worried about the hip but the location is really more consistent with back and gluteal pain. Hip x-ray was negative he passed a road test but out of an abundance of caution a pelvic CT was done which showed no fractures but he did have a 8.3 x 7.5 x 9.1 cm intramuscular hematoma in the gluteus. He declined a walker. Departure - Departure Disposition: 01 Home, Self Care Clinical Impression: Contusion, buttock Qualifiers: Encounter type: initial encounter Qualified Code(s): S30.0XXA - Contusion of lower back and pelvis, initial encounter Condition: Good Record reviewed to determine appropriate education?: Yes Instructions: ED Contusion Back Prescriptions: Oxycodone HCl/Acetaminophen [Percocet 5-325 mg Tablet] 1 - 2 each PO Q6H PRN #10 tablet PRN Reason: pain Comments: Return for new or worsening symptoms. You can ice the area. As discussed you can expect a large bruise. I am prescribing a short course of narcotic pain medication for you. These are potentially dangerous and addictive medications that should be used carefully. These medications may constipate you. Take an jzgj-trp-zwnxmtd stool softener (docusate) twice daily with plenty of water while taking these medications. If you go 24 hours without a bowel movement, take vvsg-yhl-dcwrnqj miralax, per package instructions. Do not drink or drive while taking these medications. If you received narcotic or sedating medications while in the emergency department, do not drive for 24 hours. Store this medication in a safe, secure place and out of reach of children. It is a violation of federal law to give or sell this medication to another person or to use in a manner other than prescribed. The ED will not refill narcotic prescriptions, including prescriptions lost or stolen. To dispose of unwanted medications: 1. [facility] at [address] in [place] has a medication drop box. They accept prescription medications (in pill form) Monday through Monday 9:00 a.m. to 5:00 p.m. 2. The [facility] [employer] accepts prescription medications (in pill form only) for disposal year round. Call for more information. 3. Contact the [facility] for the next [facility] sponsored prescription drug collection event. , [phone], or [phone]; Note that many narcotic pain relievers also contain Tylenol/acetaminophen. Please ensure that your total dose of acetaminophen from all sources does not exceed 3 g (3000 mg) per day. Forms: Activity restrictions
--- NOTE | 2021-01-08 20:35 | XRAY Report ---
PROCEDURE: Hip w/Pelvis 2-3V LT INDICATIONS: GLF/INJURY TECHNIQUE: AP pelvis with lateral view(s) of the bilateral hip(s). COMPARISON: None. FINDINGS: Bones: No fractures or dislocations. Pelvic ring appears intact. No suspicious bony lesions. Dege nerative changes noted in the lower lumbar spine. Soft tissues: The visualized bowel gas pattern is normal. No suspicious soft tissue calcifications. IMPRESSION: No fracture or dislocation. If clinical symptoms persist or clinical suspicion for acute fracture is high, advanced imaging such as CT may be obtained. Reviewed by: Sohail Dennis MD on 01/08/2021 8:33 PM PDT Approved by: Sohail Dennis MD on 01/08/2021 8:33 PM PDT Station ID: [id number]
--- NOTE | 2021-01-08 22:07 | CT Report ---
PROCEDURE: PELVIS WO INDICATIONS: L buttock hip pain TECHNIQUE: Noncontrast 3 mm axial sections acquired through the bony pelvis, with coronal and sagittal reformatt ing. For radiation dose reduction, the following was used: automated exposure control, adjustment of mA and/or kV according to patient size. COMPARISON: X-ray pelvis with left hip, 01/08/2021. FINDINGS: Image quality: Excellent. Bones: Fracture or dislocation of hip. Lumbar spine is intact. There is moderate degenerative disc d isease and facet arthropathy in lower lumbar spine. Soft tissues: There is an intramuscular hematoma involving and deep to the left gluteus maximum shantanu uring 8.3 cm AP x 7.5 cm transverse x 9.1 cm cephalocaudal. No soft tissue mass. No left hip joint effusion. IMPRESSION: 1. No fracture or dislocation in left hip. 2. A large 8.3 x 7.5 x 9.1 cm intramuscular hematoma involving and deep to the left gluteus muscle. Reviewed by: Sohail Dennis MD on 01/08/2021 10:06 PM PDT Approved by: Sohail Dennis MD on 01/08/2021 10:06 PM PDT Station ID: [id number]
[2021-01-08] MEDS ORDERED: oxyCODONE/ACET 5/325 Prepack 4 PO STA (22:27)
[2021-01-08 22:46] VITALS: BP 119/78
== END 2021-01-08 22:45 | disposition home or self-care (01) ==
LOC: ED 19:30
DX: S30.0XXA Contusion of lower back and pelvis, initial encounter (principal); M25.552 Pain in left hip; W18.39XA Other fall on same level, initial encounter; Y93.89 Activity, other specified; Y99.0 Civilian activity done for income or pay; I10 Essential (primary) hypertension; I25.10 Atherosclerotic heart disease of native coronary artery without angina pectoris; Z95.1 Presence of aortocoronary bypass graft; E11.9 Type 2 diabetes mellitus without complications; Z79.84 Long term (current) use of oral hypoglycemic drugs; Z79.82 Long term (current) use of aspirin
CPT/HCPCS: 1040M; 72192; 73502; 99284; A9270

== ENCOUNTER 2021-02-12 07:37 | Outpatient (CLI) | payer BC ==
[2021-02-12 12:18] LABS: CALCIUM 9.4 mg/dL (8.5-10.3); CREATININE 0.8 mg/dL (0.6-1.2); POTASSIUM 4.4 mmol/L (3.5-5.0)
[2021-02-12 12:36] LABS: ESTIMATED AVERAGE GLUCOSE 146 mg/dL (70-100); HEMOGLOBIN A1c% 6.7 % (4.27-6.07)
== END 2021-02-12 23:59 | disposition home or self-care (01) ==
LOC: LAB.WCP 07:37
PROVIDERS: ATTEND Internal Medicine
DX: E11.9 Type 2 diabetes mellitus without complications (principal); E53.8 Deficiency of other specified B group vitamins
CPT/HCPCS: 36415; 80048; 82607; 83036

== ENCOUNTER 2021-07-10 09:18 | Outpatient (CLI) | payer BC ==
[2021-07-10 14:10] LABS: ALBUMIN 4.3 g/dL (3.2-5.5); ALBUMIN/GLOBULIN RATIO 1.4 (1.0-2.2); ALKALINE PHOSPHATASE 62 IU/L (42-121); ALT ALANINE AMINOTRANSFERASE 37 IU/L (10-60); AST ASPARTATE AMINOTRANSFERASE 39 IU/L (10-42); BILIRUBIN,TOTAL 1.4 mg/dL (0.2-1.0); BUN - BLOOD UREA NITROGEN 22 mg/dL (6-20); CALCIUM 9.4 mg/dL (8.5-10.3); CARBON DIOXIDE - CO2 28 mmol/L (21-32); CHLORIDE 100 mmol/L (101-111); CHOL/HDL RATIO 3.3 (<5.0); CHOLESTEROL 110 mg/dL; CREATININE 0.7 mg/dL (0.6-1.2); GFR - MDRD 112 (>89); GLUCOSE 141 mg/dL (70-100); HDL CHOLESTEROL 33 mg/dL; LDL CHOLESTEROL,CALCULATED 57 mg/dL; LDL/HDL RATIO 1.7 (<3.6); SODIUM 136 mmol/L (135-145); TOTAL PROTEIN 7.3 g/dL (6.7-8.2); TRIGLYCERIDES 99 mg/dL; VLDL CHOLESTEROL 20 mg/dL
[2021-07-10 14:11] LABS: POTASSIUM 4.7 mmol/L (3.5-5.0)
== END 2021-07-10 09:19 | disposition home or self-care (01) ==
LOC: LAB.N 09:18
PROVIDERS: ATTEND Internal Medicine Cardiovascular Disease
DX: I25.10 Atherosclerotic heart disease of native coronary artery without angina pectoris (principal)
CPT/HCPCS: 36415; 80053; 80061; 83721

== ENCOUNTER 2021-08-12 08:08 | Outpatient (CLI) | payer BC | END 2021-08-12 08:09 | disposition critical access hospital (66) | LOC: EMS 08:08 | DX: R07.9 Chest pain, unspecified (principal); I25.2 Old myocardial infarction; Z95.1 Presence of aortocoronary bypass graft | CPT/HCPCS: A0425; A0429 ==

== ENCOUNTER 2021-08-12 08:29 | Emergency (ER) | payer BC ==
[2021-08-12] MEDS ORDERED: ASPIRIN CHEW 81 MG TABLET PO STA (08:47)
--- NOTE | 2021-08-12 08:51 | ED Physician Documentation ---
PD HPI CHEST PAIN - Stated complaint Stated Complaint: CHEST PX - Chief complaint Chief Complaint: Cardiac - History obtained from History obtained from: Patient - Additional information Additional information: The patient is brought to the emergency department by EMS for chief complaint of chest and back pain that started around 730 this morning. The patient states that he was at work walking around the shop and that he noticed the pain around his left breast area. It was very focused and felt like a tightness and a cramp. He states that immediately radiated to his back and seemed to be "bouncing between" his bilateral scapulae. Patient denies any injury. He did go see the chiropractor yesterday. He denies being able to make the pain better or worse by anything he does. He denies any associated symptoms such as dyspnea or nausea. No radiation of the pain anywhere else. The patient states he has a very slight sense of discomfort between his shoulder blades right now, but is otherwise pain -free. He states he had an AL in 2000 and that this does not feel quite like that, but could be angina. He is followed by Dr. Clark of cardiology at [facility] and his most recent angiogram was about 2 years ago. He states that at that time, Dr. Clark told him that his vessels were clear except for some slight clogging in one of the vessels. The patient states his bar back put him on a medication to help with that, though is not sure which med it is. He denies any worsening dyspnea on exertion or chest pain on exertion recently. He is otherwise feeling well. No fevers or respiratory symptoms. No other complaints at this time. Review of Systems Ten Systems: 10 systems reviewed and negative Constitutional: reports: Reviewed and negative Eyes: reports: Reviewed and negative Ears: reports: Reviewed and negative Nose: reports: Reviewed and negative Throat: reports: Reviewed and negative Cardiac: reports: Chest pain / pressure Respiratory: reports: Reviewed and negative GI: reports: Reviewed and negative : reports: Reviewed and negative Skin: reports: Reviewed and negative Musculoskeletal: reports: Back pain Neurologic: reports: Reviewed and negative Psychiatric: reports: Reviewed and negative Endocrine: reports: Reviewed and negative Immunocompromised: reports: Reviewed and negative PD PAST MEDICAL HISTORY - Past Medical History Cardiovascular: Hypertension, High cholesterol, Coronary artery disease, [place] Respiratory: None Neuro: None Endocrine/Autoimmune: Type 2 diabetes GI: None, Hepatitis HEENT: None Psych: Anxiety Derm: None - Past Surgical History Past Surgical History: Yes Cardiovascular: CABG - Present Medications Home Medications: Ambulatory Orders Medication Instructions Recorded Confirmed Atorvastatin [Lipitor] 40 mg PO DAILY 03/21/18 01/08/21 Glipizide [Glipizide ER] 5 mg PO DAILY 03/21/18 01/08/21 Metformin HCl [Metformin HCl ER] 500 mg PO BID 03/21/18 01/08/21 Ramipril 10 mg PO DAILY 03/21/18 01/08/21 atenoloL [Atenolol] 50 mg PO DAILY 03/21/18 01/08/21 Aspirin [[place] Aspirin] 81 mg PO DAILY 01/08/21 01/08/21 Cyanocobalamin (Vitamin B-12) 1,000 mg PO TID 01/08/21 01/08/21 [Vitamin B-12] LORazepam [Ativan] 1 mg PO Q4HR PRN 01/08/21 01/08/21 Magnesium Oxide [Magnesium] 400 mg PO BID 01/08/21 01/08/21 Multivitamin 1 tab PO DAILY 01/08/21 01/08/21 Nitroglycerin [Nitrostat] 0.4 mg PO PRN 01/08/21 Oxycodone HCl/Acetaminophen 1 - 2 each PO Q6H PRN #10 tablet 01/08/21 [Percocet 5-325 mg Tablet] Ubidecarenone [Coenzyme Q-10] 200 mg PO DAILY 01/08/21 01/08/21 - Allergies Allergies/Adverse Reactions: Allergies Allergy/AdvReac Type Severity Reaction Status Date / Time No Known Drug Allergies Allergy Verified 08/12/21 08:39 - Social History Does the pt smoke?: No Smoking Status: Never smoker Does the pt drink ETOH?: Yes Does the pt have substance abuse?: No - Immunizations Immunizations are current?: Yes - POLST Patient has POLST: Yes PD ED PE NORMAL - Vitals Vital signs reviewed: Yes - General General: Alert and oriented X 3, No acute distress, Well developed/nourished - HEENT HEENT: Atraumatic, PERRL, EOMI, Moist mucous membranes - Neck Neck: Supple, no meningeal sign - Cardiac Cardiac: RRR, No murmur, Strong equal pulses - Respiratory Respiratory: No respiratory distress, Clear bilaterally - Abdomen Abdomen: Soft, Non tender, Non distended - Back Back: No spinal TTP, Other (No tenderness of the thoracic musculature) - Derm Derm: Normal color, Warm and dry, No rash - Extremities Extremities: No deformity, No edema, No calf tenderness / cord - Neuro Neuro: Alert and oriented X 3, 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, Normal speech, Other (Grossly intact) - Psych Psych: Normal mood, Normal affect Results - Vitals Vitals: Vital Signs - 24 hr 08/12/21 08/12/21 08/12/21 08:36 09:32 11:04 Heart Rate 78 60 53 L Respiratory 18 15 18 Rate Blood Pressure 138/100 H 108/63 O2 Saturation 96 95 95 08/12/21 11:30 Heart Rate 55 L Respiratory 15 Rate Blood Pressure 128/90 H O2 Saturation 98 Oxygen O2 Source Room air - EKG (time done) 0829 Rate: Rate (enter#) (58) Rhythm: NSR, LAE [place]: Normal Intervals: Prolonged [place] QRS: Normal Ischemia: Normal ST segments, Non specific changes Compare to prior EKG: Old EKG unavailable Computer interpretation: Agree with computer - Labs Labs: Laboratory Tests 08/12/21 08/12/21 08/12/21 08:56 08:56 08:56 WBC 5.0 RBC 5.16 Hgb 16.4 Hct 49.8 MCV 96.5 H MCH 31.8 H MCHC 32.9 RDW 12.4 Plt Count 167 MPV 10.0 Neut # (Auto) 3.3 Lymph # (Auto) 1.1 L [place] # (Auto) 0.5 Eos # (Auto) 0.1 Baso # (Auto) 0.1 Absolute Nucleated RBC 0.00 Nucleated RBC % 0.0 PT 11.7 INR 1.0 Sodium 139 Potassium 4.3 Chloride 102 Carbon Dioxide 26 Anion Gap 11.0 BUN 26 H Creatinine 0.7 Estimated GFR (MDRD) 112 Glucose 141 H Calcium 9.6 Total Bilirubin 1.3 H AST 28 ALT 39 Alkaline Phosphatase 65 Troponin I High Sens Total Protein 7.1 Albumin 4.1 Globulin 3.0 Albumin/Globulin Ratio 1.4 Lipase 41 08/12/21 08/12/21 08:56 10:37 WBC RBC Hgb Hct MCV MCH MCHC RDW Plt Count MPV Neut # (Auto) Lymph # (Auto) [place] # (Auto) Eos # (Auto) Baso # (Auto) Absolute Nucleated RBC Nucleated RBC % PT INR Sodium Potassium Chloride Carbon Dioxide Anion Gap BUN Creatinine Estimated GFR (MDRD) Glucose Calcium Total Bilirubin AST ALT Alkaline Phosphatase Troponin I High Sens 6.9 6.7 Total Protein Albumin Globulin Albumin/Globulin Ratio Lipase - Rads (name of study) chest xr Radiology: Final report received, EMP read indepedently, See rad report (neg) PD MEDICAL DECISION MAKING - ED course Complexity details: reviewed results, re-evaluated patient, considered differential, d/w patient ED course: The patient was treated with aspirin and worked up with labs, EKG, and chest x- ray. EKG was unremarkable. Labs, including repeat troponin were also unremarkable. Chest x-ray was negative. Discussed with the patient the findings and the need for follow-up. We have discussed the usual indications for return. No emergent cause of the patient's symptoms has been identified today. Departure - Departure Disposition: 01 Home, Self Care Clinical Impression: Chest pain Qualifiers: Chest pain type: unspecified Qualified Code(s): R07.9 - Chest pain, unspecified Back pain Qualifiers: Back pain location: thoracic back pain Chronicity: acute Back pain laterality: bilateral Qualified Code(s): M54.6 - Pain in thoracic spine Condition: Stable Instructions: ED Chest Pain Atypical Unkn Cause, ED Neck Back Pain General Comments: All of your tests look good, including your repeat heart labs. It is not clear exactly what caused your chest and upper back pain today, but there is no evidence of an emergent condition at this time. If you have ongoing concerns about your heart, please talk to your bar back again. If you develop severe chest pain or shortness of breath or any other worrisome symptoms, please return to the emergency department. Discharge Date/Time: 08/12/21 11:31
[2021-08-12 09:02] LABS: BASOPHILS # (AUTO) 0.1 10^3/uL (0.0-0.1); EOSINOPHILS # (AUTO) 0.1 10^3/uL (0.0-0.7); EOSINOPHILS % (AUTO) 1.6 %; HCT - HEMATOCRIT 49.8 % (42.0-52.0); HGB - HEMOGLOBIN 16.4 g/dL (14.0-18.0); LYMPHOCYTES # (AUTO) 1.1 10^3/uL (1.5-3.5); LYMPHOCYTES % (AUTO) 21.4 %; MEAN CORPUSCULAR HEMOGLOBIN 31.8 pg (27.0-31.0); MEAN CORPUSCULAR HGB CONC 32.9 g/dL (32.0-36.0); MEAN CORPUSCULAR VOLUME 96.5 fL (80.0-94.0); MONOCYTES # (AUTO) 0.5 10^3/uL (0.0-1.0); MONOCYTES % (AUTO) 9.7 %; NEUTROPHILS # (AUTO) 3.3 10^3/uL (1.5-6.6); NEUTROPHILS % (AUTO) 66.1 %; PLT - PLATELET COUNT 167 10^3/uL (130-450); RED BLOOD COUNT 5.16 10^6/uL (4.70-6.10); RED CELL DISTRIBUTION WIDTH 12.4 % (12.0-15.0)
--- NOTE | 2021-08-12 09:12 | XRAY Report ---
PROCEDURE: Chest 1 View X-Ray INDICATIONS: Chest Pain TECHNIQUE: One view of the chest was acquired. COMPARISON: CT chest 05/13/2020. FINDINGS: Surgical changes and devices: Post median sternotomy and CABG. Lungs and pleura: No pleural effusions or pneumothorax. Lungs appear clear. Mediastinum: Mediastinal contours appear normal. Heart size is within normal limits. Bones and chest wall: No suspicious bony lesions. Overlying soft tissues appear unremarkable. IMPRESSION: No acute cardiopulmonary abnormality. Reviewed by: Mehran Carbajal MD on 08/12/2021 9:11 AM [facility] Approved by: Mehran Carbajal MD on 08/12/2021 9:11 AM PST Station ID: [id number]
[2021-08-12 09:14] LABS: PT - PROTHROMBIN TIME 11.7 secs (9.9-12.6)
[2021-08-12 09:21] LABS: ALBUMIN 4.1 g/dL (3.2-5.5); ALBUMIN/GLOBULIN RATIO 1.4 (1.0-2.2); BILIRUBIN,TOTAL 1.3 mg/dL (0.2-1.0); CALCIUM 9.6 mg/dL (8.5-10.3); CREATININE 0.7 mg/dL (0.6-1.2); POTASSIUM 4.3 mmol/L (3.5-5.0); TOTAL PROTEIN 7.1 g/dL (6.7-8.2)
[2021-08-12 11:31] VITALS: BP 128/90
== END 2021-08-12 11:31 | disposition home or self-care (01) ==
LOC: EDUNIT# → ED 08:29
DX: R07.9 Chest pain, unspecified (principal); M54.6 Pain in thoracic spine; I10 Essential (primary) hypertension; Z95.5 Presence of coronary angioplasty implant and graft; E11.9 Type 2 diabetes mellitus without complications; Z79.84 Long term (current) use of oral hypoglycemic drugs
CPT/HCPCS: 36415; 80053; 83690; 84484; 85025; 85610; 93005; 99283; 99284

== ENCOUNTER 2021-09-25 09:05 | Outpatient (CLI) | payer BC ==
[2021-09-25 13:48] LABS: BASOPHILS # (AUTO) 0.1 10^3/uL (0.0-0.1); BASOPHILS % (AUTO) 1.5 %; EOSINOPHILS # (AUTO) 0.1 10^3/uL (0.0-0.7); EOSINOPHILS % (AUTO) 2.4 %; HCT - HEMATOCRIT 52.7 % (42.0-52.0); HGB - HEMOGLOBIN 17.2 g/dL (14.0-18.0); LYMPHOCYTES # (AUTO) 1.7 10^3/uL (1.5-3.5); LYMPHOCYTES % (AUTO) 31.1 %; MEAN CORPUSCULAR HEMOGLOBIN 31.6 pg (27.0-31.0); MEAN CORPUSCULAR HGB CONC 32.6 g/dL (32.0-36.0); MEAN CORPUSCULAR VOLUME 96.9 fL (80.0-94.0); MEAN PLATELET VOLUME 10.9 fL (7.4-11.4); MONOCYTES # (AUTO) 0.6 10^3/uL (0.0-1.0); MONOCYTES % (AUTO) 11.2 %; NEUTROPHILS # (AUTO) 2.9 10^3/uL (1.5-6.6); NEUTROPHILS % (AUTO) 53.6 %; PLT - PLATELET COUNT 180 10^3/uL (130-450); RED BLOOD COUNT 5.44 10^6/uL (4.70-6.10); RED CELL DISTRIBUTION WIDTH 12.7 % (12.0-15.0); WHITE BLOOD COUNT 5.5 x10^3/uL (4.8-10.8)
[2021-09-25 14:03] LABS: ALBUMIN 4.6 g/dL (3.2-5.5); ALBUMIN/GLOBULIN RATIO 1.8 (1.0-2.2); ALKALINE PHOSPHATASE 69 IU/L (42-121); ALT ALANINE AMINOTRANSFERASE 38 IU/L (10-60); AST ASPARTATE AMINOTRANSFERASE 29 IU/L (10-42); BUN - BLOOD UREA NITROGEN 21 mg/dL (6-20); CALCIUM 9.3 mg/dL (8.5-10.3); CARBON DIOXIDE - CO2 29 mmol/L (21-32); CHLORIDE 97 mmol/L (101-111); CHOL/HDL RATIO 3.5 (<5.0); CHOLESTEROL 126 mg/dL; CREATININE 0.8 mg/dL (0.6-1.2); GFR - MDRD 96 (>89); GLUCOSE 136 mg/dL (70-100); HDL CHOLESTEROL 36 mg/dL; LDL CHOLESTEROL,CALCULATED 62 mg/dL; LDL/HDL RATIO 1.7 (<3.6); POTASSIUM 4.3 mmol/L (3.5-5.0); SODIUM 135 mmol/L (135-145); TOTAL PROTEIN 7.2 g/dL (6.7-8.2); TRIGLYCERIDES 140 mg/dL; VLDL CHOLESTEROL 28 mg/dL
[2021-09-25 14:08] LABS: MICROALBUM/CREATININE RATIO,UR 37.5 ug/mg (<30.0); MICROALBUMIN,URINE 0.6 mg/dL (0-300.0)
[2021-09-25 14:09] LABS: ESTIMATED AVERAGE GLUCOSE 166 mg/dL (70-100); HEMOGLOBIN A1c% 7.4 % (4.27-6.07)
== END 2021-09-25 09:06 | disposition home or self-care (01) ==
LOC: LAB.N 09:05
PROVIDERS: ATTEND Internal Medicine
DX: E11.9 Type 2 diabetes mellitus without complications (principal); E78.5 Hyperlipidemia, unspecified; E53.8 Deficiency of other specified B group vitamins
CPT/HCPCS: 36415; 80053; 80061; 82043; 82570; 82607; 83036; 83721; 85025

== ENCOUNTER 2021-10-19 16:11 | Outpatient (CLI) | payer BC ==
--- NOTE | 2021-10-20 11:05 | CT Report ---
PROCEDURE: CHEST WO INDICATIONS: MULTIPLE NODULES OF LUNG TECHNIQUE: Noncontrast 1mm axial images were acquired from the pulmonary apices to the posterior costophrenic an gles. Axial 5 mm soft tissue kernel reconstructions were performed as well as 8 mm axial MIP and cor onal and sagittal 5 mm reformations. For radiation dose reduction, the following was used: automate d exposure control, adjustment of mA and/or kV according to patient size. COMPARISON: 05/22/2020 FINDINGS: Image quality: Excellent. Lungs and pleura: Previously described pulmonary nodules are all either decreased or unchanged in siz e. No new or enlarging pulmonary nodule. No abnormal airspace opacity otherwise. No significant pleur al abnormality. Mediastinum: Normal heart size. CABG changes. No pericardial effusion. Aortic atherosclerosis. Bones and chest wall: No suspicious lytic or blastic osseous chest wall lesion. Median sternotomy maria isabel nges. No threshold enlarged supraclavicular or axillary lymph node. Abdomen: No acute finding in the included unenhanced upper abdomen. IMPRESSION: All previously described pulmonary nodules are either unchanged or decreased. No suspicious new or enlarging pulmonary nodule. Reviewed by: Johny Menjivar MD on 10/20/2021 11:04 AM PDT Approved by: Johny Menjivar MD on 10/20/2021 11:04 AM PDT Station ID: [id number]
== END 2021-10-19 16:12 | disposition home or self-care (01) ==
LOC: DI 16:11
PROVIDERS: ATTEND Internal Medicine
DX: R91.8 Other nonspecific abnormal finding of lung field (principal)

== ENCOUNTER 2022-05-28 14:58 | Emergency (ER) | payer BC ==
[2022-05-28 15:40] LABS: BASOPHILS # (AUTO) 0.1 10^3/uL (0.0-0.1); BASOPHILS % (AUTO) 0.8 %; EOSINOPHILS # (AUTO) 0.2 10^3/uL (0.0-0.7); EOSINOPHILS % (AUTO) 2.5 %; HCT - HEMATOCRIT 49.8 % (42.0-52.0); LYMPHOCYTES # (AUTO) 1.6 10^3/uL (1.5-3.5); LYMPHOCYTES % (AUTO) 25.9 %; MEAN CORPUSCULAR HEMOGLOBIN 30.7 pg (27.0-31.0); MEAN CORPUSCULAR HGB CONC 32.1 g/dL (32.0-36.0); MEAN CORPUSCULAR VOLUME 95.6 fL (80.0-94.0); MEAN PLATELET VOLUME 10.1 fL (7.4-11.4); MONOCYTES # (AUTO) 0.7 10^3/uL (0.0-1.0); MONOCYTES % (AUTO) 11.1 %; NEUTROPHILS # (AUTO) 3.6 10^3/uL (1.5-6.6); NEUTROPHILS % (AUTO) 59.4 %; PLT - PLATELET COUNT 165 10^3/uL (130-450); RED BLOOD COUNT 5.21 10^6/uL (4.70-6.10); RED CELL DISTRIBUTION WIDTH 12.6 % (12.0-15.0); WHITE BLOOD COUNT 6.1 x10^3/uL (4.8-10.8)
--- NOTE | 2022-05-28 15:45 | ED Physician Documentation ---
PD HPI CHEST PAIN - Stated complaint Stated Complaint: CHEST PX - Chief complaint Chief Complaint: Cardiac - History obtained from History obtained from: Patient, Family - History of Present Illness Timing - onset: How many hours ago (14) Timing - onset during: Rest Timing - duration: Minutes (45-60) Timing - details: Gradual onset, Intermittant Pain level max: 2 Pain level now: 0 Quality: Pressure Location: Substernal Radiation: No: Jaw, Neck, Back, Abdominal, Left upper extremity, Right upper extremity Improved by: No: Rest, Oxygen, Nitro, ASA, Antacids, Other medication, Nothing Worsened by: Other (states walked to the mailbox with no change). No: Exertion, Inspiration, Eating, Movement, Palpation, Position Associated symptoms: No: Shortness of air, Diaphoresis, Nausea, Vomiting, Feeling faint / dizzy, General Weakness, Palpitations, Cough Similar symptoms before: Diagnosis (CABG in 2001 at [facility]. Sees Cardiology at [facility]. Dr. Winter. States normal angiograms every 2 years.) Recently seen: Not recently seen Review of Systems Ten Systems: 10 systems reviewed and negative Constitutional: denies: Fever, Chills Nose: denies: Rhinorrhea / runny nose, Congestion Throat: denies: Sore throat Cardiac: denies: Palpitations GI: denies: Vomiting, Diarrhea Skin: denies: Rash Musculoskeletal: denies: Neck pain, Back pain Neurologic: denies: Focal weakness, Numbness, Headache PD PAST MEDICAL HISTORY - Past Medical History Past Medical History: Yes Cardiovascular: Hypertension, High cholesterol, Coronary artery disease, [place] Respiratory: None Neuro: None Endocrine/Autoimmune: Type 2 diabetes GI: None, Hepatitis HEENT: None Psych: Anxiety Derm: None - Past Surgical History Past Surgical History: Yes Cardiovascular: CABG - Present Medications Home Medications: Ambulatory Orders Medication Instructions Recorded Confirmed Atorvastatin [Lipitor] 40 mg PO DAILY 03/21/18 01/08/21 Glipizide [Glipizide ER] 5 mg PO DAILY 03/21/18 01/08/21 Metformin HCl [Metformin HCl ER] 500 mg PO BID 03/21/18 01/08/21 Ramipril 10 mg PO DAILY 03/21/18 01/08/21 atenoloL [Atenolol] 50 mg PO DAILY 03/21/18 01/08/21 Aspirin [[place] Aspirin] 81 mg PO DAILY 01/08/21 01/08/21 Cyanocobalamin (Vitamin B-12) 1,000 mg PO TID 01/08/21 01/08/21 [Vitamin B-12] LORazepam [Ativan] 1 mg PO Q4HR PRN 01/08/21 01/08/21 Magnesium Oxide [Magnesium] 400 mg PO BID 01/08/21 01/08/21 Multivitamin 1 tab PO DAILY 01/08/21 01/08/21 Nitroglycerin [Nitrostat] 0.4 mg PO PRN 01/08/21 Oxycodone HCl/Acetaminophen 1 - 2 each PO Q6H PRN #10 tablet 01/08/21 [Percocet 5-325 mg Tablet] Ubidecarenone [Coenzyme Q-10] 200 mg PO DAILY 01/08/21 01/08/21 - Allergies Allergies/Adverse Reactions: Allergies Allergy/AdvReac Type Severity Reaction Status Date / Time No Known Drug Allergies Allergy Verified 08/12/21 08:39 - Social History Does the pt smoke?: No Smoking Status: Never smoker Does the pt drink ETOH?: Yes Does the pt have substance abuse?: No - Immunizations Immunizations are current?: Yes - POLST Patient has POLST: Yes PD ED PE NORMAL - Vitals Vital signs reviewed: Yes - General General: Alert and oriented X 3, No acute distress, Well developed/nourished - HEENT HEENT: PERRL, Moist mucous membranes - Neck Neck: Supple, no meningeal sign - Cardiac Cardiac: RRR, Strong equal pulses - Respiratory Respiratory: No respiratory distress, Clear bilaterally - Abdomen Abdomen: Soft, Non tender, Non distended - Derm Derm: Warm and dry - Extremities Extremities: No edema, No calf tenderness / cord - Neuro Neuro: Alert and oriented X 3 - Psych Psych: Normal mood, Normal affect Results - Vitals Vitals: Vital Signs - 24 hr 05/28/22 05/28/22 05/28/22 15:09 15:42 16:32 Temperature 36.4 C L Heart Rate 59 L 56 L 74 Respiratory 18 16 18 Rate Blood Pressure 149/66 H 113/94 H 120/76 O2 Saturation 99 95 98 Oxygen O2 Source Room air - EKG (time done) 1509 Rate: Rate (enter#) (57) Rhythm: NSR [place]: Normal Intervals: Prolonged [place] QRS: Normal Ischemia: Normal ST segments, Q waves (v1-2) - Labs Labs: Laboratory Tests 05/28/22 05/28/22 05/28/22 15:25 15:25 15:25 WBC 6.1 RBC 5.21 Hgb 16.0 Hct 49.8 MCV 95.6 H MCH 30.7 MCHC 32.1 RDW 12.6 Plt Count 165 MPV 10.1 Neut # (Auto) 3.6 Lymph # (Auto) 1.6 [place] # (Auto) 0.7 Eos # (Auto) 0.2 Baso # (Auto) 0.1 Absolute Nucleated RBC 0.00 Nucleated RBC % 0.0 Sodium 138 Potassium 4.0 Chloride 99 L Carbon Dioxide 28 Anion Gap 11.0 BUN 30 H Creatinine 0.9 Estimated GFR (MDRD) 84 L Glucose 149 H Calcium 9.7 Total Bilirubin 0.8 AST 23 ALT 30 Alkaline Phosphatase 74 Troponin I High Sens 6.5 Total Protein 6.9 Albumin 4.2 Globulin 2.7 Albumin/Globulin Ratio 1.6 Lipase 49 - Rads (name of study) Chest x-ray Radiology: Final report received, EMP read contemporaneously, See rad report (No acute abnormality) PD MEDICAL DECISION MAKING - ED course Complexity details: reviewed results, re-evaluated patient, considered differential (No ST elevation [place], no aortic dissection, no PE, no tension pneumothorax, no aortic aneurysm), d/w patient, d/w family ED course: Patient is a 71-year-old male who had chest pain about 14 hours prior to arrival. Negative high-sensitivity troponin. Negative chest x-ray. No acute ischemic changes on EKG. Patient is asymptomatic currently. He states that he is out of his Ativan and does request a dose of this here. This was given to him. No evidence of PE, pneumothorax. Patient counseled regarding signs and symptoms for which I believe and urgent re-evaluation would be necessary. Patient with good understanding of and agreement to plan and is comfortable going home at this time This document was made in part using voice recognition software. While efforts are made to proofread this document, sound alike and grammatical errors may occur. Departure - Departure Disposition: 01 Home, Self Care Clinical Impression: Chest pain Qualifiers: Chest pain type: unspecified Qualified Code(s): R07.9 - Chest pain, unspecified Condition: Good Instructions: ED Chest Pain Atypical Unkn Cause Follow-Up: Nabeel Khan MD [Primary Care Provider] - Within 1 week Comments: Your chest x-ray, EKG and laboratory testing do not show any acute abnormalities today. Please follow-up with your doctor for further care. Please return if you worsen. Discharge Date/Time: 05/28/22 16:32
--- NOTE | 2022-05-28 15:52 | XRAY Report ---
PROCEDURE: Chest 1 View X-Ray INDICATIONS: Chest pain TECHNIQUE: One view of the chest was acquired. COMPARISON: 08/12/2021. Correlation is also made with chest CT, 10/19/2021 FINDINGS: Surgical changes and devices: Post CABG changes are seen. Lungs and pleura: No pleural effusions or pneumothorax. Lungs are clear. Mediastinum: Mediastinal contours appear normal. Heart size is normal. Bones and chest wall: No suspicious bony lesions. Age-appropriate degenerative changes are seen. Overlying soft tissues appear unremarkable. IMPRESSION: Portable chest within normal limits for age. Postoperative and degenerative changes are seen. Reviewed by: Hermelindo Webster MD on 05/28/2022 2:51 PM [facility] Approved by: Hermelindo Webster MD on 05/28/2022 2:51 PM [facility] Station ID: [id number]
[2022-05-28 15:59] LABS: ALBUMIN 4.2 g/dL (3.2-5.5); ALBUMIN/GLOBULIN RATIO 1.6 (1.0-2.2); BILIRUBIN,TOTAL 0.8 mg/dL (0.2-1.0); CALCIUM 9.7 mg/dL (8.5-10.3); CREATININE 0.9 mg/dL (0.6-1.2); TOTAL PROTEIN 6.9 g/dL (6.7-8.2)
[2022-05-28] MEDS ORDERED: LORazepam 1 MG TABLET PO STA (16:16)
[2022-05-28 16:32] VITALS: BP 120/76
== END 2022-05-28 16:32 | disposition home or self-care (01) ==
LOC: ED 14:58
DX: R07.9 Chest pain, unspecified (principal)
CPT/HCPCS: 36415; 71045; 80053; 83690; 84484; 85025; 93005; 99284; J8499

== ENCOUNTER 2022-06-07 15:08 | Outpatient (CLI) | payer BC ==
--- NOTE | 2022-06-07 16:20 | SLEEP CARE CONSULTATION ---
Information from patient questionnaire entered by Marilin Pizarro. I have reviewed and concur with the information entered by Marilin Pizarro. This document represents the service I personally performed and the decisions made by me, Ayanna You ARNP. History of Present Illness Service Date and Time: 06/07/2022 1508 Reason for Visit: New patient, sleep apnea on CPAP therapy (last titration 2006 with AHI 21.3), Re-establish care Chief Complaint: reports: Snoring, Observed pauses in breathing, Fatigue, Frequent awakenings at night Date of Onset: YEARS Usual bedtime: 10-1030PM Time it takes to fall asleep: VARIOUS Snores at night: Yes Observed to quit breathing while asleep: Yes Sleeps alone due to snoring: No Number of times waking at night: 1-3 Reasons for waking at night: reports: Bathroom, Other (UNKNOWN REASONS) Toss, Turn, or Twitch while sleeping: Yes Recalls having dreams: Yes Feels refreshed in the morning: Yes (SOMETIMES) Morning headache: No Sleepy or fatigued during the day: Yes Ever fallen asleep while driving: Yes Takes day naps: Yes Dreams during day naps: Yes Prior sleep studies: Yes ([facility] [place] 2001) Additional HPI information: AMADO SIMONS was previously diagnosed to have moderate, AHI 21.3, obstructive sleep apnea-hypopnea syndrome and comes in today to establish care for CPAP therapy. - Parasomnia Symptoms Ever been unable to move upon waking from sleep: No Walks in sleep: No Talks in sleep: No Ever acted out dreams in sleep: No Ever felt weak in the knees when startled or emotional: No Bothered by creepy, crawly, restless sensations in legs: Yes Problems with memory or concentration: No CPAP Compliance Data - Data Reviewed with Patient Average duration of nightly device use: 4 hours 40 minutes Compliance rate %: 77 (179/180 days used) Current pressure setting (cmH2O): 15-17 (avg 16.6, max 16.7) Average residual AHI: 7.0 Central apnea: 0.5 Obstructive apnea: 2.7 Compliance data discussion: He has a Resmed Airsense 10 that he received in 2013. [facility] but is now getting his supplies online. He is using a full face mask, size large, by [employer]. Subjective Patient concerns: reports: mask leak noise (when grows a varma). denies: aerophagia, mask discomfort, air blowing in eyes, condensation in mask/hose, nasal congestion, dry mouth, nose, throat, epistaxis Observed to snore while using device: No Current pressure setting perceived as: comfortable On therapy, patient: reports: sleeping better, awakening more refreshed, being more awake and alert during the day, more rested overall. 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 Patient is and lives in [place]. Have you smoked in the past 12 months: No Cigarettes per day (20/pack): 15 Years of smokin Quit date: 1991 Smoking Pack Years: 10.5 Alcohol use: Yes Alcohol amount and frequency: 2-3 BEERS THUR-FRI Caffeine use: Yes Caffeine amount and frequency: 2 CUPS DAILY Family History Family history of sleep disordered breathing: Yes Family Hx Sleep Apnea: Mother: Snoring Allergies and Home Medications Known drug allergies: Yes (NITROGLICERIN) Drug allergies reviewed: Yes Home medication list reviewed: Yes (see list in EMR) Review of Systems Weight loss over past 5 years: 30 lbs Cardiovascular: reports: high blood pressure, leg or foot swelling Gastrointestinal: denies: heartburn Neurological: denies: headaches Psychiatric: reports: anxiety Ear/Nose/Throat: reports: dry mouth/throat Musculoskeletal: reports: joint pain, muscle pain or cramping Physical Exam Vital signs obtained and entered by: MARILIN Johns MA Blood Pressure: 134/82 Cuff size: regular Heart Rate: 98 O2 Saturation: 95 Height: 5 ft 11 in Weight: 250 lb 3.2 oz Body Mass Index: 34.9 BMI Classification: Obese Heart: regular rate and rhythm Lungs: clear bilaterally Impression and Plan 1. Obstructive Sleep Apnea-Hypopnea Syndrome, moderate, with good treatment compliance and fair apnea control with slightly elevated residual AHI. On CPAP therapy, the patient has better sleep quality and is more rested overall. The patients pressure will be changed to autoCPAP 16-18 cmH20 for elevation of residual AHI. Patient advised to contact me if pressure change is uncomfortable so that it can be adjusted. Goals for apnea control discussed. Patient has not been getting regular supplies from a DME company. He last used [employer]. He has been purchasing his supplies online. He is getting ready to retire and would like to set up for DME. He has a ResMed Airsense 10 that he received in 2013. He states it is still working well but sometimes the air does not completely shut off when he turns the machine off. The patients CPAP is over 5 years old and of reasonable use. Thus, the CPAP will be updated. A DWO prescription will be made. Compliance guidelines for new device and follow up discussed. Patient's apnea severity and rationale for treatment to reduce apnea, improve sleep quality and reduce cardiovascular and cerebrovascular events was reviewed. I also reviewed the benefit of consistent device use of CPAP for hypertension, diabetes, coronary heart disease and anxiety. Patient is also requesting paperwork on his [employer] for [facility] to get documentation for his benefits. I will look it over and fill in the form. He will be called to come seed cone picker when it has been completed. 2. Obesity, unspecified. Currently patients BMI is 34.9. Obesity increases the risk of apnea, CPAP pressure requirements and overall health risks especially cardiovascular and diabetes. Thus patient is advised to lose weight. * Change auto CPAP pressure to 16-18 cmH2O * Transfer DME * Update machine * Update supplies * Notify me if snoring with mask or feeling that the pressure is too much or too little * Attempt to lose weight * Call this office if any problems using CPAP * Return for follow up one month after he obtains new device or sooner if concerns arise Counseling Topics: Spare mask, Weight loss health impact Prescriptions: Auto CPAP, Device supplies Visit Type: In Office Time Spent with Patient (minutes): 34 Provider Statement: I spent 100% of the Face to Face Visit with the patient with greater than 50% spent counseling the patient and coordination of care.
[2022-06-07 16:29] VITALS: BP 134/82
== END 2022-06-07 15:09 | disposition home or self-care (01) ==
LOC: SC 15:08
PROVIDERS: ATTEND Nurse Practitioner Family
DX: G47.33 Obstructive sleep apnea (adult) (pediatric) (principal); E66.9 Obesity, unspecified; Z68.34 Body mass index [BMI] 34.0-34.9, adult; F17.200 Nicotine dependence, unspecified, uncomplicated
CPT/HCPCS: 99203; 99212

== ENCOUNTER 2022-07-28 11:40 | Outpatient (CLI) | payer BC | END 2022-07-28 23:59 | disposition home or self-care (01) | LOC: LAB.N 11:40 | PROVIDERS: ATTEND Family Medicine | DX: R30.0 Dysuria (principal) | CPT/HCPCS: 87086 ==

== ENCOUNTER 2022-08-25 07:54 | Outpatient (CLI) | payer BC ==
[2022-08-25 12:00] LABS: BASOPHILS # (AUTO) 0.1 10^3/uL (0.0-0.1); BASOPHILS % (AUTO) 1.1 %; EOSINOPHILS # (AUTO) 0.1 10^3/uL (0.0-0.7); EOSINOPHILS % (AUTO) 2.7 %; HCT - HEMATOCRIT 51.6 % (42.0-52.0); HGB - HEMOGLOBIN 16.2 g/dL (14.0-18.0); LYMPHOCYTES # (AUTO) 1.5 10^3/uL (1.5-3.5); LYMPHOCYTES % (AUTO) 34.4 %; MEAN CORPUSCULAR HEMOGLOBIN 30.7 pg (27.0-31.0); MEAN CORPUSCULAR HGB CONC 31.4 g/dL (32.0-36.0); MEAN CORPUSCULAR VOLUME 97.9 fL (80.0-94.0); MEAN PLATELET VOLUME 10.7 fL (7.4-11.4); MONOCYTES # (AUTO) 0.5 10^3/uL (0.0-1.0); MONOCYTES % (AUTO) 11.5 %; NEUTROPHILS # (AUTO) 2.2 10^3/uL (1.5-6.6); NEUTROPHILS % (AUTO) 50.1 %; PLT - PLATELET COUNT 162 10^3/uL (130-450); RED BLOOD COUNT 5.27 10^6/uL (4.70-6.10); WHITE BLOOD COUNT 4.4 x10^3/uL (4.8-10.8)
[2022-08-25 12:47] LABS: THYROID STIMULATING HORMONE 1.81 uIU/mL (0.34-5.60)
[2022-08-25 12:57] LABS: ALBUMIN 4.3 g/dL (3.2-5.5); ALBUMIN/GLOBULIN RATIO 1.3 (1.0-2.2); ALKALINE PHOSPHATASE 69 IU/L (42-121); ALT ALANINE AMINOTRANSFERASE 26 IU/L (10-60); AST ASPARTATE AMINOTRANSFERASE 24 IU/L (10-42); BUN - BLOOD UREA NITROGEN 25 mg/dL (6-20); CALCIUM 9.5 mg/dL (8.5-10.3); CARBON DIOXIDE - CO2 31 mmol/L (21-32); CHLORIDE 100 mmol/L (101-111); CHOL/HDL RATIO 3.2 (<5.0); CHOLESTEROL 105 mg/dL; CREATININE 0.8 mg/dL (0.6-1.2); GFR - MDRD 96 (>89); GLUCOSE 127 mg/dL (70-100); HDL CHOLESTEROL 33 mg/dL; LDL CHOLESTEROL,CALCULATED 46 mg/dL; LDL/HDL RATIO 1.4 (<3.6); SODIUM 135 mmol/L (135-145); TOTAL PROTEIN 7.5 g/dL (6.7-8.2); TRIGLYCERIDES 130 mg/dL; VLDL CHOLESTEROL 26 mg/dL
[2022-08-25 13:18] LABS: MICROALBUMIN,URINE 0.9 mg/dL (0-300.0)
[2022-08-25 13:28] LABS: ESTIMATED AVERAGE GLUCOSE 151 mg/dL (70-100); HEMOGLOBIN A1c% 6.9 % (4.27-6.07)
== END 2022-08-25 07:55 | disposition home or self-care (01) ==
LOC: LAB.N 07:54
PROVIDERS: ATTEND Internal Medicine
DX: E11.59 Type 2 diabetes mellitus with other circulatory complications (principal); E78.5 Hyperlipidemia, unspecified; E53.8 Deficiency of other specified B group vitamins; Z12.5 Encounter for screening for malignant neoplasm of prostate; F41.8 Other specified anxiety disorders; D75.89 Other specified diseases of blood and blood-forming organs
CPT/HCPCS: 36415; 80053; 80061; 82043; 82570; 82607; 83036; 83721; 84153; 84443; 85025

== ENCOUNTER 2022-10-04 08:38 | Outpatient (CLI) | payer BC ==
--- NOTE | 2022-10-04 09:19 | SLEEP CARE CONSULTATION ---
Information from patient questionnaire entered by Ahmet Pizarro. I have reviewed and concur with the information entered by Ahmet Pizarro. This document represents the service I personally performed and the decisions made by , Ayanna You ARNP. History of Present Illness Service Date and Time: 10/04/2022 0838 Previous diagnosis: Moderate, Obstructive Sleep Apnea-Hypopnea Syndrome AHI: 21.3 (in 2006) Reason for follow up: first compliance after device update Equipment type: CPAP (RESMED Airsense 11 s/u 07/2022) Equipment obtained from: [employer] ([employer] supplies) Mask style: Full face Mask brand: Resmed (AirTouch F20) Backup mask available: Yes (other mask) Last cushion change: over a month Prior sleep studies: Yes (SLEEP [facility] 2001) HPI additional information: AMADO SIMONS was diagnosed to have moderate, AHI 21.3, obstructive sleep apnea-hypopnea syndrome and returned today for CPAP therapy first compliance after updating device follow-up. Sleep Study - Results Prior sleep studies: Yes (SLEEP [facility] 2001) CPAP Compliance Data - Data Reviewed with Patient Average duration of nightly device use: 6 HRS 42 MIN Compliance rate %: 100 (30/30 days used) Current pressure setting (cmH2O): 16-18 (median 16.9, avg 17.6, max 17.8) Average residual AHI: 6.8 Central apnea: 0.7 Obstructive apnea: 3.7 Hypopnea: 2.2 Average large leak: 2.0 lpm Subjective Patient concerns: reports: dry mouth, nose, throat (chronic; uses biotene mouth moisturizer). denies: aerophagia, mask discomfort, air blowing in eyes, mask leak noise, condensation in mask/hose, nasal congestion, epistaxis Observed to snore while using device: No Current pressure setting perceived as: comfortable On therapy, patient: reports: sleeping better, awakening more refreshed, being more awake and alert during the day, more rested overall. denies: drowsiness while driving Initial [place] Sleepiness Scale score: 20 (05/05/2022) Current [place] Sleepiness Scale score: 14 (10/04/22) Allergies and Home Medications Known drug allergies: No Drug allergies reviewed: Yes Home medication list reviewed: Yes (no changes) Allergy and home medication list: Allergies No Known Drug Allergies Allergy (Verified 10/03/22 15:56) Review of Systems Review of systems same as previous: Yes (no changes) Physical Exam Vital signs obtained and entered by: AHMET Johns MA Blood Pressure: 108/62 (LEFT ARM) Cuff size: regular Heart Rate: 53 O2 Saturation: 98 Height: 5 ft 11 in Weight: 249 lb 12.8 oz Weight change since last visit: 1 pound loss Body Mass Index: 34.8 BMI Classification: Obese Impression and Plan 1. Obstructive Sleep Apnea-Hypopnea Syndrome, moderate, with good treatment compliance and good apnea control. On CPAP therapy, the patient has better sleep quality and is more rested overall. He has significant improvement of his sleep apnea with mild reduction of therapy efficiency. I discussed this with patient and he felt he could tolerate an increase in his pressure. The patients pressure will be changed to autoCPAP 16-19 cmH20 for elevation of residual AHI. Patient advised to contact me if pressure change is uncomfortable so that it can be adjusted. Goals for apnea control discussed. Patient's apnea severity and rationale for treatment to reduce apnea, improve sleep quality and reduce cardiovascular and cerebrovascular events was reviewed. I also reviewed the benefit of consistent device use of CPAP for hypertension, cardiac disease ([place]), diabetes, and anxiety. 2. Obesity, unspecified. Currently patients BMI is 34.8. Obesity increases the risk of apnea, CPAP pressure requirements and overall health risks especially cardiovascular and diabetes. Thus patient is advised to lose weight. * Change auto CPAP pressure to 16-19 cmH2O * Notify me if snoring with mask or feeling that the pressure is too much or too little * Attempt to lose weight * Call this office if any problems using CPAP * Return for follow up in 1 year, or sooner if concerns arise Counseling Topics: Spare mask, Weight loss health impact Visit Type: In Office Time Spent with Patient (minutes): 20 Provider Statement: I spent 100% of the Face to Face Visit with the patient with greater than 50% spent counseling the patient and coordination of care.
[2022-10-04 09:20] VITALS: BP 108/62
== END 2022-10-04 08:39 | disposition home or self-care (01) ==
LOC: SC 08:38
PROVIDERS: ATTEND Nurse Practitioner Family
DX: G47.33 Obstructive sleep apnea (adult) (pediatric) (principal); E66.9 Obesity, unspecified; Z68.34 Body mass index [BMI] 34.0-34.9, adult
CPT/HCPCS: 99212; 99213

== ENCOUNTER 2023-02-17 09:07 | Outpatient (CLI) | payer BC, OTHER ==
[2023-02-17 12:20] LABS: BASOPHILS # (AUTO) 0.1 10^3/uL (0.0-0.1); EOSINOPHILS # (AUTO) 0.2 10^3/uL (0.0-0.7); EOSINOPHILS % (AUTO) 3.2 %; HCT - HEMATOCRIT 50.1 % (42.0-52.0); HGB - HEMOGLOBIN 15.9 g/dL (14.0-18.0); LYMPHOCYTES # (AUTO) 1.7 10^3/uL (1.5-3.5); LYMPHOCYTES % (AUTO) 33.5 %; MEAN CORPUSCULAR HEMOGLOBIN 31.4 pg (27.0-31.0); MEAN CORPUSCULAR HGB CONC 31.7 g/dL (32.0-36.0); MEAN PLATELET VOLUME 10.7 fL (7.4-11.4); MONOCYTES # (AUTO) 0.6 10^3/uL (0.0-1.0); MONOCYTES % (AUTO) 11.2 %; NEUTROPHILS # (AUTO) 2.5 10^3/uL (1.5-6.6); NEUTROPHILS % (AUTO) 50.7 %; PLT - PLATELET COUNT 160 10^3/uL (130-450); RED BLOOD COUNT 5.06 10^6/uL (4.70-6.10)
[2023-02-17 12:29] LABS: CHOL/HDL RATIO 2.8 (<5.0); CHOLESTEROL 90 mg/dL; HDL CHOLESTEROL 32 mg/dL; LDL CHOLESTEROL,CALCULATED 29 mg/dL; LDL/HDL RATIO 0.9 (<3.6); TRIGLYCERIDES 145 mg/dL (48-352); VLDL CHOLESTEROL 29 mg/dL
[2023-02-17 12:30] LABS: ALBUMIN 4.4 g/dL (3.2-5.5); ALBUMIN/GLOBULIN RATIO 1.7 (1.0-2.2); BILIRUBIN,TOTAL 0.5 mg/dL (0.2-1.0); CALCIUM 9.5 mg/dL (8.5-10.3); CREATININE 0.8 mg/dL (0.6-1.3); POTASSIUM 4.2 mmol/L (3.5-4.5)
[2023-02-17 12:58] LABS: ESTIMATED AVERAGE GLUCOSE 148 mg/dL (70-100); HEMOGLOBIN A1c% 6.8 % (4.27-6.07)
== END 2023-02-17 09:08 | disposition home or self-care (01) ==
LOC: LAB.N 09:07
PROVIDERS: ATTEND Internal Medicine
DX: E11.59 Type 2 diabetes mellitus with other circulatory complications (principal); I25.10 Atherosclerotic heart disease of native coronary artery without angina pectoris; E78.2 Mixed hyperlipidemia
CPT/HCPCS: 36415; 80048; 80053; 80061; 83036; 83721; 85025

== ENCOUNTER 2023-03-03 14:14 | Outpatient (CLI) | payer OTHER ==
--- NOTE | 2023-03-03 15:04 | XRAY Report ---
PROCEDURE: Hips 2V BILAT INDICATIONS: HIP JOINT PAINFUL ON MOVEMENT TECHNIQUE: 3 views of the bilateral hips were acquired. COMPARISON: X-ray pelvis 01/08/2021. FINDINGS: Bones: No fractures or dislocations. No suspicious bony lesions. 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 Degenerative lewis es of the visualized lower lumbar spine. Soft tissues: No suspicious soft tissue calcifications or masses. 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 Reviewed by: Silas Montenegro MD on 03/03/2023 3:03 PM PDT Approved by: Silas Montenegro MD on 03/03/2023 3:03 PM PDT Station ID: [id number]
== END 2023-03-03 14:15 | disposition home or self-care (01) ==
LOC: DI 14:14
PROVIDERS: ATTEND Internal Medicine
DX: M16.0 Bilateral primary osteoarthritis of hip (principal)

== ENCOUNTER 2023-08-18 08:02 | Outpatient (CLI) | payer OTHER ==
[2023-08-18 13:02] LABS: ESTIMATED AVERAGE GLUCOSE 166 mg/dL (70-100); HEMOGLOBIN A1c% 7.4 % (4.27-6.07)
[2023-08-18 14:12] LABS: CALCIUM 9.9 mg/dL (8.5-10.3); CREATININE 0.7 mg/dL (0.6-1.3); POTASSIUM 4.3 mmol/L (3.5-4.5)
== END 2023-08-18 08:03 | disposition home or self-care (01) ==
LOC: LAB.N 08:02
PROVIDERS: ATTEND Internal Medicine
DX: E11.59 Type 2 diabetes mellitus with other circulatory complications (principal)
CPT/HCPCS: 36415; 80048; 83036

== ENCOUNTER 2023-10-12 09:52 | Outpatient (CLI) | payer BC ==
--- NOTE | 2023-10-12 10:29 | Sleep Patient Instructions ---
Sleep Center Visit Summary - Patient Visit Information Reason for Visit: Annual follow-up - Patient Instructions Additional Instructions: You will continue with CPAP therapy with pressure changed to 20 cmH2O. A supply prescription will be updated with your DME. We encourage you to continue to try to lose weight. Please follow up with the sleep care office in 6 months. - Clinic Information Contact: [facility] [address] [place] [address] [email or web address] T: [phone]
--- NOTE | 2023-10-12 10:37 | SLEEP CARE CONSULTATION ---
Information from patient questionnaire entered by Ahmet Pizarro. I have reviewed and concur with the information entered by Ahmet Pizarro. This document represents the service I personally performed and the decisions made by me, Ayanna You ARNP. History of Present Illness Service Date and Time: 10/12/2023 0952 Previous diagnosis: Moderate, Obstructive Sleep Apnea-Hypopnea Syndrome AHI: 21.3 (in 2006) Reason for follow up: annual (LAST SEEN 10/2022) Equipment type: CPAP (RESMED Airsense 11 s/u 07/2022) Equipment obtained from: [employer] ([employer] supplies) Mask style: Full face Mask brand: [employer] Backup mask available: Yes Last cushion change: 6 weeks Prior sleep studies: Yes (S[facility] 2001) HPI additional information: AMADO SIMONS was diagnosed to have moderate, AHI 21.3, obstructive sleep apnea-hypopnea syndrome and returned today for CPAP therapy annual follow-up. Sleep Study - Results Prior sleep studies: Yes (SLEEP [facility] 2001) CPAP Compliance Data - Data Reviewed with Patient Average duration of nightly device use: 7 HRS 20 MINS Compliance rate %: 98 (10/10/22-10/09/23; 361/365 days used) Current pressure setting (cmH2O): 17-20 (avg 19.5, max 19.6) Average residual AHI: 6.4 Central apnea: 0.6 Obstructive apnea: 3.1 Hypopnea: 2.6 Average large leak: 2.2 L/min Subjective Patient concerns: reports: mask leak noise, dry mouth, nose, throat. denies: aerophagia, mask discomfort, air blowing in eyes, condensation in mask/hose, nasal congestion, epistaxis Observed to snore while using device: No Current pressure setting perceived as: comfortable Initial [place] Sleepiness Scale score: 20 (05/05/2022) Current [place] Sleepiness Scale score: 15 (10/12/23) Allergies and Home Medications Known drug allergies: No Drug allergies reviewed: Yes Home medication list reviewed: Yes (Metformin up to 3 day) Allergy and home medication list: Allergies No Known Drug Allergies Allergy (Verified 10/10/23 09:52) Review of Systems Review of systems same as previous: No (ARTHRITIS IN LOWER BACK) Physical Exam Vital signs obtained and entered by: AHMET Johns MA Blood Pressure: 140/69 (RIGHT ARM) Cuff size: regular Heart Rate: 65 O2 Saturation: 95 Height: 5 ft 11 in Weight: 261 lb Body Mass Index: 36.3 BMI Classification: Obese Impression and Plan 1. Obstructive Sleep Apnea-Hypopnea Syndrome, moderate, with good treatment compliance and fair apnea control with elevated residual AHI. On CPAP therapy, the patient has better sleep quality and is more rested overall. His residual AHI is mildly elevated at 6.4 and he is telling me that he will occasionally fall asleep after breakfast and has more tiredness during the day. He has been keeping track of his AHI and says each day is very different, sometimes under 5 and more often above 5, even up to 10. He says he was in a BiPAP many years ago but was changed to a CPAP. He does not feel his new 11 is working as well as his old 10 in the last year. I discussed with patient that we may schedule him for a titration study to see if he needs to go back to a BiPAP, possible ST. He is going to leave area for vacation in about 6 weeks and is not sure how soon he is coming back. He would like to hold off on titration and try another adjustment of his CPAP pressure. His average pressure used is 19.5 cmH2O. The patients pressure will be changed to CPAP 20 cmH20 for elevation of residual AHI. Patient advised to contact me if pressure change is uncomfortable so that it can be adjusted. Goals for apnea control discussed. Patient's apnea severity and rationale for treatment to reduce apnea, improve sleep quality and reduce cardiovascular and cerebrovascular events was reviewed. I also reviewed the benefit of consistent device use of CPAP for hypertension, cardiac disease ([place]), diabetes, anxiety. 2. Obesity, unspecified. Currently patients BMI is 36.3. Obesity increases the risk of apnea, CPAP pressure requirements and overall health risks especially cardiovascular and diabetes. Thus patient is advised to lose weight. * Change auto CPAP pressure to 20 cmH2O * Update supplies * Notify me if snoring with mask or feeling that the pressure is too much or too little * Attempt to lose weight * Call this office if any problems using CPAP * Return for follow up in 6 months, or sooner if concerns arise Counseling Topics: Spare mask, Weight loss health impact Prescriptions: Device supplies Visit Type: In Office Time Spent with Patient (minutes): 29 Provider Statement: I spent 100% of the Face to Face Visit with the patient with greater than 50% spent counseling the patient and coordination of care.
[2023-10-12 10:41] VITALS: BP 140/69; O2SAT 95
== END 2023-10-12 09:53 | disposition home or self-care (01) ==
LOC: SC 09:52
PROVIDERS: ATTEND Nurse Practitioner Family
DX: G47.33 Obstructive sleep apnea (adult) (pediatric) (principal); E66.9 Obesity, unspecified; Z68.36 Body mass index [BMI] 36.0-36.9, adult
CPT/HCPCS: 99212; 99213

== ENCOUNTER 2024-02-28 07:46 | Outpatient (CLI) | payer OTHER ==
[2024-02-28 12:11] LABS: BASOPHILS % (AUTO) 0.9 %; EOSINOPHILS # (AUTO) 0.1 10^3/uL (0.0-0.7); EOSINOPHILS % (AUTO) 2.4 %; HCT - HEMATOCRIT 50.8 % (42.0-52.0); HGB - HEMOGLOBIN 16.6 g/dL (14.0-18.0); LYMPHOCYTES # (AUTO) 1.3 10^3/uL (1.5-3.5); LYMPHOCYTES % (AUTO) 26.8 %; MEAN CORPUSCULAR HGB CONC 32.7 g/dL (32.0-36.0); MEAN CORPUSCULAR VOLUME 98.1 fL (80.0-94.0); MEAN PLATELET VOLUME 10.6 fL (7.4-11.4); MONOCYTES # (AUTO) 0.5 10^3/uL (0.0-1.0); MONOCYTES % (AUTO) 10.5 %; NEUTROPHILS # (AUTO) 2.8 10^3/uL (1.5-6.6); PLT - PLATELET COUNT 186 10^3/uL (130-450); RED BLOOD COUNT 5.18 10^6/uL (4.70-6.10); RED CELL DISTRIBUTION WIDTH 13.2 % (12.0-15.0); WHITE BLOOD COUNT 4.7 x10^3/uL (4.8-10.8)
[2024-02-28 12:30] LABS: ALBUMIN 4.3 g/dL (3.2-5.5); ALBUMIN/GLOBULIN RATIO 1.7 (1.0-2.2); ALKALINE PHOSPHATASE 60 IU/L (42-121); ALT ALANINE AMINOTRANSFERASE 31 IU/L (10-60); AST ASPARTATE AMINOTRANSFERASE 25 IU/L (10-42); BILIRUBIN,TOTAL 0.7 mg/dL (0.2-1.0); BUN - BLOOD UREA NITROGEN 22 mg/dL (6-20); CALCIUM 9.5 mg/dL (8.5-10.3); CARBON DIOXIDE - CO2 31 mmol/L (21-32); CHLORIDE 102 mmol/L (101-111); CHOL/HDL RATIO 2.6 (<5.0); CHOLESTEROL 89 mg/dL; CREATININE 0.7 mg/dL (0.6-1.3); ESTIMATED AVERAGE GLUCOSE 137 mg/dL (70-100); GFR - MDRD 111 (>89); GLUCOSE 137 mg/dL (74-104); HDL CHOLESTEROL 34 mg/dL; HEMOGLOBIN A1c% 6.4 % (4.27-6.07); LDL CHOLESTEROL,CALCULATED 28 mg/dL; LDL/HDL RATIO 0.8 (<3.6); POTASSIUM 4.4 mmol/L (3.5-4.5); SODIUM 137 mmol/L (135-145); TOTAL PROTEIN 6.9 g/dL (6.4-8.9); TRIGLYCERIDES 135 mg/dL; VLDL CHOLESTEROL 27 mg/dL
[2024-02-28 12:43] LABS: CREATININE,URINE 58.9 mg/dL; MICROALBUM/CREATININE RATIO,UR 18.7 ug/mg (<30.0); MICROALBUMIN,URINE 1.1 mg/dL
== END 2024-02-28 07:47 | disposition home or self-care (01) ==
LOC: LAB.N 07:46
PROVIDERS: ATTEND Internal Medicine
DX: I10 Essential (primary) hypertension (principal); E11.59 Type 2 diabetes mellitus with other circulatory complications; Z12.5 Encounter for screening for malignant neoplasm of prostate; I25.10 Atherosclerotic heart disease of native coronary artery without angina pectoris; E78.2 Mixed hyperlipidemia
CPT/HCPCS: 36415; 80053; 80061; 82043; 82570; 83036; 83721; 84153; 85025